=== PATIENT | female | born 1975 | race Caucasian/White ===

== ENCOUNTER 2018-09-26 21:04 | Emergency (ER) | payer MEDICAID, OTHER ==
[2018-09-26] MEDS ORDERED: Zosyn 3.375GM/100 Ml D5W 3.375 GM/100 ML IVPB IV STA (22:06)
[2018-09-26] MEDS ORDERED: Zofran 4 MG/2 ML VIAL IV ONE (22:11)
[2018-09-26] MEDS ORDERED: MORPHINE SULFATE 4 MG INJ IV ONE (22:12)
[2018-09-26] MEDS ORDERED: Sodium Chloride 0.9% 1000 ML 1,000 ML IV SCH (22:15)
--- NOTE | 2018-09-26 22:18 | ERPHSYRPT ---
- History of Present Illness Time Seen by Provider: 09/26/18 21:45 Source: patient Exam Limitations: clinical condition Patient Subjective Stated Complaint: Pt states that she came to the ER due to Pt states that she was walking out the back door on Saturday 2 days ago coming down a on a small step and fell pt states that one right leg was out in front and the back left leg was bent like doing the splits. Pt states that she didn't pass out hit or head. Pt states that she sat there for 2-3 min and called out to her son and pts son helped her get up pt states that her left upper thigh felt like she tore something at first pt states that she hasn't had any more issues with the left upper thigh. Pt staets that the scrabs on your left foot is what has been bothering you. Swelling with scraps and abrasions noted on pts left upper foot and knees and upper casanova. Pt is able to move Both extremities with in normal limits. Pt denies having any fever or illness at this time.Pts states that she cleaned the wound with Ivory and water and applied antibiotic cream and placed guaze pads coband and bandage tape to help and applied ice. Saturday when pt worked she states that having her shoes on at work has irritated the wound. Pt states that she changed the dressing multiply times at work Triage Nursing Assessment: Pt states that she came to the ER due to Pt states that she was walking out the back door on Saturday 2 days ago coming down a on a small step and fell pt states that one right leg was out in front and the back left leg was bent like doing the splits. Pt states that she didn't pass out hit or head. Pt states that she sat there for 2-3 min and called out to her son and pts son helped her get up pt states that her left upper thigh felt like she tore something at first pt states that she hasn't had any more issues with the left upper thigh. Pt staets that the scrabs on your left foot is what has been bothering you. Swelling with scraps and abrasions noted on pts left upper foot and knees and upper casanova. Pt is able to move Both extremities with in normal limits. Pt denies having any fever or illness at this time.Pts states that she cleaned the wound with Ivory and water and applied antibiotic cream and placed guaze pads coband and bandage tape to help and applied ice. Saturday when pt worked she states that having her shoes on at work has irritated the wound. Pt states that she changed the dressing multiply times at work Physician History: PATIENT STATES SHE SLIPPED ONTO STEP AT HOME 2 DAYS AGO SUSTAINED INJURY AND ABRASIONS TO LEFT FOOT AND KNEE, NOW HAS REDNESS WITH SWELLING OVER LEFT FOOT ASSOCIATED WITH INCREASING SWELLING AND PAIN UPON WEIGHT BEARING. Occurred: days ago Reason for Fall: tripped Injuries/Pain Location: lower extremity Loss of Consciousness: no loss of consciousness Quality: aching Severity of Pain-Max: moderate Severity of Pain-Current: moderate Modifying Factors: Improves With: movement Associated Symptoms (Fall): extremity injury (REDNESS WITH SWELLING AROUND FOOT ABRASION) Allergies/Adverse Reactions: No Known Drug Allergies Allergy (Verified 09/26/18 21:59) Hx Tetanus, Diphtheria Vaccination/Date Given: No Hx Influenza Vaccination/Date Given: Yes (12/2017) Hx Pneumococcal Vaccination/Date Given: No Immunizations Up to Date: Yes - Review of Systems Constitutional: No Fever, No Chills Eyes: No Symptoms Ears, Nose, & Throat: No Symptoms Respiratory: No Cough, No Dyspnea Cardiac: No Chest Pain, No Edema, No Syncope Abdominal/Gastrointestinal: No Abdominal Pain, No Nausea, No Vomiting, No Diarrhea Genitourinary Symptoms: No Dysuria Musculoskeletal: Injury, Joint Redness, Joint Pain, Joint Swelling, No Back Pain , No Neck Pain Skin: Cellulitis, No Rash Neurological: No Dizziness, No Focal Weakness, No Sensory Changes Psychological: No Symptoms Endocrine: No Symptoms All Other Systems: Reviewed and Negative - Past Medical History Pertinent Past Medical History: No Neurological History: No Pertinent History ENT History: No Pertinent History Cardiac History: No Pertinent History Respiratory History: No Pertinent History Endocrine Medical History: No Pertinent History Musculoskeletal History: No Pertinent History GI Medical History: Irritable Bowel History: No Pertinent History Psycho-Social History: Anxiety, Depression Female Reproductive Disorders: No Pertinent History - Past Surgical History Past Surgical History: Yes Female Surgical History: Section, Tubal Ligation Other Surgical History: ablasion 10 yrs ago - Social History Smoking Status: Never smoker Exposure to second hand smoke: No Drug Use: none Patient Lives Alone: Yes Significant Family History: no pertinent family hx - Female History Hx Last Menstrual Period: July Hx Now: No - Nursing Vital Signs Nursing Vital Signs: Initial Vital Signs Temperature 98.2 F 09/26/18 21:25 Pulse Rate 81 09/26/18 21:25 Respiratory Rate 18 09/26/18 21:25 Blood Pressure 148/88 09/26/18 21:25 O2 Sat by Pulse Oximetry 97 09/26/18 21:25 Pain Scale Pain Intensity 2 - Physical Exam General Appearance: no apparent distress Extremity Exam: pain with movement, tenderness, other (THE PROXIMAL LEFT FOOT WITH SWELLING AND A 2CM X 4CM SUPERFICIAL ABRASION WITH SURROUNDING WARMTH AND ERYTHEMA, ERYTHEMA STREAK EXTENDING FROM ANTERIOR ASPECT OF LEFT ANKLE TO PROXIMAL LEFT CASANOVA 19CM, NO DRAINAGE NOTED. LEFT PEDIS PULSE 2 +) Skin Exam: normal color SpO2 Interpretation: normal SpO2: 95 O2 Delivery: Room Air Ordered Tests: Active Orders 24 hr Category Date Time Status IV Insertion STAT Care 09/26/18 22:05 Active ANKLE (3 VIEWS) Stat Exams 09/26/18 22:08 Taken FOOT (MINIMUM 3 VIEWS) Stat Exams 09/26/18 22:07 Taken BLOOD CULTURE Stat Lab 09/26/18 22:33 Received CBC W DIFF Stat Lab 09/26/18 22:05 Completed Medication Summary Generic Name Dose Route Start Last Admin Trade Name Freq PRN Reason Stop Dose Admin Sodium Chloride 1,000 mls @ 100 mls/hr 09/26/18 22:15 09/26/18 22:31 Sodium Chloride 0.9% 1000 Ml IV 10/26/18 22:14 100 mls/hr .Q10H JUAQUIN Administration Discontinued Medications Generic Name Dose Route Start Last Admin Trade Name Freq PRN Reason Stop Dose Admin Piperacillin Sod/Tazobactam Sod 3.375 gm in 100 mls @ 200 mls/hr 09/26/18 22: 06 09/26/18 22:51 Zosyn 3.375gm/100 Ml D5w IV 09/26/18 22:35 200 mls/hr STAT STA 200 mls/hr Administration Piperacillin Sod/Tazobactam Sod Confirm 09/26/18 22:26 Zosyn 3.375gm/100 Ml D5w Administered 09/26/18 22:27 Dose 3.375 gm in 100 mls @ ud IV .STK-MED ONE Morphine Sulfate 4 mg 09/26/18 22:12 09/26/18 22:40 Morphine Sulfate 4 Mg Inj IV 09/26/18 22:13 4 mg STAT ONE Administration Morphine Sulfate Confirm 09/26/18 22:26 Morphine Sulfate 4 Mg Inj Administered 09/26/18 22:27 Dose 4 mg .ROUTE .STK-MED ONE Ondansetron HCl 4 mg 09/26/18 22:11 09/26/18 22:36 Zofran 4 Mg/2 Ml Vial IV 09/26/18 22:12 4 mg STAT ONE Administration Ondansetron HCl Confirm 09/26/18 22:25 Zofran 4 Mg/2 Ml Vial Administered 09/26/18 22:26 Dose 4 mg .ROUTE .STK-MED ONE Lab/Rad Data: Laboratory Result Diagrams 09/26/18 22:05 Laboratory Results 09/26/18 Range/Units 22:05 WBC 11.4 H (4.0-10.5) K/mm3 RBC 4.87 (4.1-5.4) M/mm3 Hgb 14.6 (12.0-16.0) gm/dl Hct 43.9 (35-47) % MCV 90.1 (78-100) fl MCH 30.0 (26-32) pg MCHC 33.3 (32-36) g/dl RDW 13.3 (11.5-14.0) % Plt Count 243 (150-450) K/mm3 MPV 11.5 H (6-9.5) fl Gran % 63.0 (36.0-66.0) % Eos # (Auto) 0.23 (0-0.5) Absolute Lymphs (auto) 3.13 (1.0-4.6) Absolute Monos (auto) 0.85 (0.0-1.3) Lymphocytes % 27.4 (24.0-44.0) % Monocytes % 7.4 (0.0-12.0) % Eosinophils % 2.0 (0.00-5.0) % Basophils % 0.2 (0.0-0.4) % Absolute Granulocytes 7.20 H (1.4-6.9) Basophils # 0.02 (0-0.4) - Progress Progress Note: 09/26/18 22:18 AFTER BLOOD CULTURES IV NORMAL SALINE 100ML/HR ZOSYN 3.375GM IVPB, MORPHINE 4MG , ZOFRAN 4MG IV - Departure Departure Disposition: Home Clinical Impression: CELLULITIS LEFT FOOT AND ANKLE Condition: Stable Critical Care Time: No Referrals: CHANDLER LOTT [Primary Care Provider] - Additional Instructions: AMBULATE USING CRUTCHES NONWEIGHT BEARING LEFT FOOT FOR 5 DAYS. ELEVATE LEFT FOOT ABOVE WAIST WHILE SITTING OR SUPINE POSITION. ANTIBIOTIC AUGMENTIN 875MG TWICE DAILY FOR 10 DAYS. NORCO 5/325 EVERY 6 HOURS FOR PAIN NEEDED. RETURN TO EMERGENCY FOR ONSET OF FEVER, CHILLS, INCREASING SWELLING AND PERSISTENT RED STREAK OVER CASANOVA. Prescriptions: Hydrocodone/APAP 5-325 Tab^^^ [[place] 5-325 Tablet^^^] 1 tab PO Q6HPRN PRN #10 tablet MDD 4 PRN Reason: Pain Amox Tr/Potass Clav. 875 mg [Augmentin 875-125 Tablet] 875 mg PO BID #20 tablet
[2018-09-26] MEDS ORDERED: Zofran 4 MG/2 ML VIAL ONE (22:25)
[2018-09-26] MEDS ORDERED: Sodium Chloride 0.9% 1000 ML 1,000 ML ONE (22:26)
[2018-09-26] MEDS ORDERED: MORPHINE SULFATE 4 MG INJ ONE (22:26)
[2018-09-26] MEDS ORDERED: Zosyn 3.375GM/100 Ml D5W 3.375 GM/100 ML IVPB IV ONE (22:26)
[2018-09-26 22:33] LABS: BASOPHIL % 0.2 % (0.0-0.4); Basophil (Absolute #) 0.02 (0-0.4); Eosinophil (Absolute #) 0.23 (0-0.5); Hematocrit 43.9 % (35-47); Hemoglobin 14.6 gm/dl (12.0-16.0); Lymphocyte (Absolute #) 3.13 (1.0-4.6); Lymphocytes % 27.4 % (24.0-44.0); Mean Cell Volume 90.1 fl (78-100); Mean Corpuscular Hgb Concent. 33.3 g/dl (32-36); Mean Platelet Volume 11.5 fl (6-9.5); Monocyte (Absolute #) 0.85 (0.0-1.3); Monocytes % 7.4 % (0.0-12.0); Platelet Count 243 K/mm3 (150-450); Red Blood Count 4.87 M/mm3 (4.1-5.4); Red Cell Distribution Width 13.3 % (11.5-14.0); White Blood Count 11.4 K/mm3 (4.0-10.5)
[2018-09-27] MEDS ORDERED: Augmentin 875-125 Tablet PO ONE (00:20)
[2018-09-27] MEDS ORDERED: Augmentin 875-125 Tablet ONE (00:22)
[2018-09-27 00:54] VITALS: BP 107/67; PULSE 67; O2SAT 97
--- NOTE | 2018-09-27 09:49 | XRAY ---
Indication: Pain following fall. Comparison: None 3 views of the left ankle demonstrates medial soft tissue swelling and small heel spurs. No other bony, articular, or soft tissue abnormalities.
--- NOTE | 2018-09-27 09:49 | XRAY ---
Indication: Pain following fall. Comparison: None 3 nonweightbearing views of the left foot demonstrates small heel spurs. No other bony, articular, or soft tissue abnormalities.
== END 2018-09-27 00:50 | disposition home or self-care (01) ==
LOC: ED 21:04
DX: L03.116 Cellulitis of left lower limb (principal); W01.0XXA Fall on same level from slipping, tripping and stumbling without subsequent striking against object, initial encounter; S90.812A Abrasion, left foot, initial encounter; S80.212A Abrasion, left knee, initial encounter; S80.812A Abrasion, left lower leg, initial encounter
CPT/HCPCS: 36000; 36415; 73610; 73630; 85025; 87040; 96360; 96361; 96365; 96374; 96375; 99284; J2270; J2405; J2543; A9270-GY

== ENCOUNTER 2020-05-01 15:40 | Emergency (ER) | payer SELFPAY ==
[2020-05-01 15:53] VITALS: O2SAT 98
[2020-05-01] MEDS ORDERED: Sodium Chloride 0.9% 1000 ML 1,000 ML IV STA (15:56)
[2020-05-01] MEDS ORDERED: TORAdol 30 mg Injection IV ONE (15:56)
--- NOTE | 2020-05-01 15:59 | ERPHSYRPT ---
- History of Present Illness Time Seen by Provider: 05/01/20 15:46 Historian: patient Exam Limitations: no limitations Patient Subjective Stated Complaint: Pt states that she has been having difficulty urinating and began having pain with urination, today she began having pain in her left flank Triage Nursing Assessment: Pt c/o of painful urination and left flank pain, hypertensive, rates left flank pain and left abdominal quadrant pain with p alpatation as 7/10, no edema, pulses normal, skin n/w/d, hx of UTI's, denies hx of kidney stones Physician History: 45 years old female with history of anxiety depression presented in the ER with chief complaint of 1 week history of burning urination, increased frequency and moderate to severe sharp shooting pain in the left flank since morning with radiation to lower back without any significant aggravating or relieving factors. Patient denies any associated nausea or vomiting. Denies hematuria. No history of kidney stones but does have history of UTIs in the past. No fever or chills reported. Allergies/Adverse Reactions: No Known Drug Allergies Allergy (Verified 05/01/20 15:53) Home Medications: Buspirone HCl 5 mg [Buspar 5 mg] 5 mg PO BID 05/01/20 [History] Escitalopram Oxalate 10 mg [Lexapro 10 MG] 10 mg PO DAILY 05/01/20 [History] Trazodone HCl 50 mg [Desyrel 50 mg] 50 mg PO DAILY 05/01/20 [History] Hx Tetanus, Diphtheria Vaccination/Date Given: No Hx Influenza Vaccination/Date Given: Yes (12/2017) Hx Pneumococcal Vaccination/Date Given: No Travel Risk - International Travel Have you traveled outside of the country in past 3 weeks: No - Coronavirus Screening Are you exhibiting any of the following symptoms?: No Close contact with a COVID-19 positive Pt in past 14-21 Days: No - Review of Systems Constitutional: No Symptoms Eyes: No Symptoms Ears, Nose, & Throat: No Symptoms Respiratory: No Symptoms Cardiac: No Symptoms Abdominal/Gastrointestinal: Abdominal Pain Genitourinary Symptoms: Dysuria, Frequency Musculoskeletal: No Symptoms Skin: No Symptoms Neurological: No Symptoms Psychological: Anxiety, Depression Endocrine: No Symptoms Hematologic/Lymphatic: No Symptoms Immunological/Allergic: No Symptoms - Past Medical History Pertinent Past Medical History: Yes Neurological History: No Pertinent History ENT History: No Pertinent History Cardiac History: No Pertinent History Respiratory History: No Pertinent History Endocrine Medical History: No Pertinent History Musculoskeletal History: No Pertinent History GI Medical History: Irritable Bowel History: No Pertinent History Psycho-Social History: Anxiety, Depression Female Reproductive Disorders: No Pertinent History - Past Surgical History Past Surgical History: Yes Female Surgical History: Section, Tubal Ligation Other Surgical History: ablasion 10 yrs ago - Social History Smoking Status: Never smoker Exposure to second hand smoke: No Drug Use: none Patient Lives Alone: No Significant Family History: no pertinent family hx - Female History Hx Last Menstrual Period: approx 1 year ago Hx Now: No - Nursing Vital Signs Nursing Vital Signs: Initial Vital Signs Temperature 97.9 F 05/01/20 15:45 Pulse Rate 77 05/01/20 15:45 Blood Pressure 160/92 05/01/20 15:45 O2 Sat by Pulse Oximetry 98 05/01/20 15:45 Pain Scale Pain Intensity 2 - Physical Exam General Appearance: no apparent distress, alert, anxiety Eye Exam: PERRL/EOMI, eyes nml inspection Ears, Nose, Throat Exam: normal ENT inspection Neck Exam: normal inspection Respiratory Exam: normal breath sounds Cardiovascular Exam: regular rate/rhythm, normal heart sounds Gastrointestinal/Abdomen Exam: soft, normal bowel sounds, tenderness (Left flank with positive CVA tenderness.), No distention, No guarding Back Exam: normal inspection, normal range of motion Extremity Exam: normal inspection Neurologic Exam: alert, oriented x 3, cooperative Skin Exam: normal color, warm SpO2 Interpretation: normal SpO2: 98 O2 Delivery: Room Air Ordered Tests: Active Orders 24 hr Category Date Time Status IV Insertion STAT Care 05/01/20 15:56 Active ABDOMEN AND PELVIS W CONTRAST [CT] Stat Exams 05/01/20 16:25 Taken CBC W DIFF Stat Lab 05/01/20 15:56 Completed CMP Stat Lab 05/01/20 15:56 Completed CULTURE,URINE Stat Lab 05/01/20 15:59 Received LIPASE Stat Lab 05/01/20 15:56 Completed UA W/RFX UR CULTURE Stat Lab 05/01/20 15:59 Completed Medication Summary Generic Name Dose Route Start Last Admin Trade Name Freq PRN Reason Stop Dose Admin Ceftriaxone Sodium/Dextrose 1 g in 50 mls @ 100 mls/hr 05/01/20 16:56 05/01/20 16:59 Rocephin 1 Gm-D5w 50 Ml Bag IV 05/01/20 17:25 100 ml/hr STAT STA 100 mls/hr Administration Discontinued Medications Generic Name Dose Route Start Last Admin Trade Name Lawanda PRN Reason Stop Dose Admin Sodium Chloride 1,000 mls @ 999 mls/hr 05/01/20 15:56 05/01/20 16:02 Sodium Chloride 0.9% 1000 Ml IV 05/01/20 16:56 999 mls/hr .Q1H1M STA Administration Sodium Chloride Confirm 05/01/20 16:00 Sodium Chloride 0.9% 1000 Ml Administered 05/01/20 16:01 Dose 1,000 mls @ ud .ROUTE .STK-MED ONE Ceftriaxone Sodium/Dextrose Confirm 05/01/20 16:57 Rocephin 1 Gm-D5w 50 Ml Bag Administered 05/01/20 16:58 Dose 1 g in 50 mls @ ud IV .STK-MED ONE Ketorolac Tromethamine 30 mg 05/01/20 15:56 05/01/20 16:02 Toradol 30 Mg Injection IV 05/01/20 15:57 30 mg STAT ONE Administration Ketorolac Tromethamine Confirm 05/01/20 16:00 Toradol 30 Mg Injection Administered 05/01/20 16:01 Dose 30 mg .ROUTE .STK-MED ONE Lab/Rad Data: Laboratory Result Diagrams 05/01/20 15:56 05/01/20 15:56 Laboratory Results 05/01/20 05/01/20 05/01/20 Range/Units 15:59 15:56 15:56 WBC 10.7 H (4.0-10.5) K/mm3 RBC 4.56 (4.1-5.4) M/mm3 Hgb 13.0 (12.0-16.0) gm/dl Hct 41.9 (35-47) % MCV 91.9 (78-100) fl MCH 28.5 (26-32) pg MCHC 31.0 L (32-36) g/dl RDW 13.1 (11.5-14.0) % Plt Count 183 (150-450) K/mm3 MPV 11.1 H (7.5-11.0) fl Gran % 67.8 H (36.0-66.0) % Eos # (Auto) 0.40 (0-0.5) Absolute Lymphs (auto) 2.05 (1.0-4.6) Absolute Monos (auto) 0.97 (0.0-1.3) Lymphocytes % 19.2 L (24.0-44.0) % Monocytes % 9.1 (0.0-12.0) % Eosinophils % 3.7 (0.00-5.0) % Basophils % 0.2 (0.0-0.4) % Absolute Granulocytes 7.24 H (1.4-6.9) Basophils # 0.02 (0-0.4) Sodium 136 L (137-145) mmol/L Potassium 4.6 (3.5-5.1) mmol/L Chloride 101 (98-107) mmol/L Carbon Dioxide 29 (22-30) mmol/L Anion Gap 10.9 (5-15) MEQ/L BUN 13 (7-17) mg/dL Creatinine 0.95 (0.52-1.04) mg/dL Estimated GFR > 60.0 ML/MIN Glucose 105 (74-106) mg/dL Calcium 9.2 (8.4-10.2) mg/dL Total Bilirubin 0.20 (0.2-1.3) mg/dL AST 22 (14-36) U/L ALT 16 (0-35) U/L Alkaline Phosphatase 71 (38-126) U/L Serum Total Protein 7.1 (6.3-8.2) g/dL Albumin 4.2 (3.5-5.0) g/dL Lipase 38 (23-300) U/L Urine Color YELLOW (YELLOW) Urine Appearance CLOUDY (CLEAR) Urine pH 6.0 (5-6) Ur Specific [place] 1.011 (1.005-1.025) Urine Protein 30 (Negative) Urine Ketones NEGATIVE (NEGATIVE) Urine Blood LARGE (0-5) Phong/ul Urine Nitrite NEGATIVE (NEGATIVE) Urine Bilirubin NEGATIVE (NEGATIVE) Urine Urobilinogen NEGATIVE (0-1) mg/dL Ur Leukocyte Esterase LARGE (NEGATIVE) Urine WBC (Auto) 51-100 (0-5) /HPF Urine RBC (Auto) >101 (0-2) /HPF U Epithel Cells (Auto) RARE (FEW) /HPF Urine Bacteria (Auto) FEW (NEGATIVE) /HPF U Non-Squamous Epi Cells RARE (FEW) /HPF Amorphous Crystals MODERATE (NEGATIVE) /HPF Urine Culture Reflexed YES (NO) Urine Glucose NEGATIVE (NEGATIVE) mg/dL - Progress Progress: improved, re-examined Progress Note: 05/01/20 17:05 25 years old is evaluated for left flank pain with UTI symptoms. She is given fluid bolus and Toradol, on reevaluation feeling better. Work-up showed finding consistent with UTI but no pyelonephritis. CT showed some element of jejunitis but patient does not have any pain in the right side are in the midline. I have given her a dose of Rocephin in here and will continue with the Cipro to go home and outpatient follow-up. Discussed signs symptoms of worsening needing return to ER which she seems understanding. Stable for discharge. Counseled pt/family regarding: lab results, diagnosis, need for follow-up, rad results - Departure Departure Disposition: Home Clinical Impression: UTI (urinary tract infection) Qualifiers: Urinary tract infection type: site unspecified Hematuria presence: with hematuria Qualified Code(s): N39.0 - Urinary tract infection, site not specified; R31.9 - Hematuria, unspecified Condition: Stable Critical Care Time: No Referrals: CHANDLER LOTT [Primary Care Provider] - Follow Up with PCP/3 days Instructions: Flank Pain, Urinary Tract Infection, Adult (DC) Additional Instructions: Take Tylenol/ibuprofen as needed. Continue with antibiotics. Follow culture results. Return to ER for intractable pain/vomiting/fever chills etc. Prescriptions: Ciprofloxacin [Cipro 500 MG] 500 mg PO BID #14 tablet
[2020-05-01] MEDS ORDERED: Sodium Chloride 0.9% 1000 ML 1,000 ML ONE (16:00)
[2020-05-01] MEDS ORDERED: TORAdol 30 mg Injection ONE (16:00)
[2020-05-01 16:11] LABS: Absolute Neutrophil Ct (ANC) 7.24 (1.4-6.9); BASOPHIL % 0.2 % (0.0-0.4); Basophil (Absolute #) 0.02 (0-0.4); Eosinophil % 3.7 % (0.00-5.0); Hematocrit 41.9 % (35-47); Lymphocyte (Absolute #) 2.05 (1.0-4.6); Lymphocytes % 19.2 % (24.0-44.0); Mean Cell Volume 91.9 fl (78-100); Mean Corpuscular Hemoglobin 28.5 pg (26-32); Mean Platelet Volume 11.1 fl (7.5-11.0); Monocyte (Absolute #) 0.97 (0.0-1.3); Monocytes % 9.1 % (0.0-12.0); Neutrophil % 67.8 % (36.0-66.0); Platelet Count 183 K/mm3 (150-450); Red Blood Count 4.56 M/mm3 (4.1-5.4); Red Cell Distribution Width 13.1 % (11.5-14.0); White Blood Count 10.7 K/mm3 (4.0-10.5)
[2020-05-01 16:17] LABS: Amourphous Crystal MODERATE /HPF (NEGATIVE); Appearance CLOUDY (CLEAR); Bacteria FEW /HPF (NEGATIVE); Bilirubin NEGATIVE (NEGATIVE); Blood LARGE Ery/ul (0-5); Epithelial Cells RARE /HPF (FEW); Glucose NEGATIVE (NEGATIVE); Ketones NEGATIVE (NEGATIVE); Leukocyte Esterase LARGE (NEGATIVE); Nitrite NEGATIVE (NEGATIVE); Non-Squamous Epithelial Cells RARE /HPF (FEW); Protein,Urine Dip 30 (Negative); RBC >101 /HPF (0-2); Specific Gravity 1.011 (1.005-1.025); Urobilinogen NEGATIVE mg/dL (0-1); WBC 51-100 /HPF (0-5)
[2020-05-01 16:22] LABS: ALBUMIN 4.2 g/dL (3.5-5.0); ALKALINE PHOSPHATASE 71 U/L (38-126); ANION GAP 10.9 MEQ/L (5-15); BLOOD UREA NITROGEN 13 mg/dL (7-17); CHLORIDE 101 mmol/L (98-107); Calcium 9.2 mg/dL (8.4-10.2); Carbon Dioxide 29 mmol/L (22-30); Creatinine 1 0.95 mg/dL (0.52-1.04); EST GLOMERULAR FILTRATION RATE > 60.0 ML/MIN; Glucose 105 mg/dL (74-106); LIPASE 38 U/L (23-300); Potassium 4.6 mmol/L (3.5-5.1); SGOT/AST 22 U/L (14-36); SGPT/ALT 16 U/L (0-35); SODIUM 136 mmol/L (137-145); Total Protein 7.1 g/dL (6.3-8.2)
[2020-05-01] MEDS ORDERED: ROCEPHIN 1 Gm-D5w 50 ml Bag** 1 G/50 ML IVPB IV STA (16:56)
[2020-05-01] MEDS ORDERED: ROCEPHIN 1 Gm-D5w 50 ml Bag** 1 G/50 ML IVPB IV ONE (16:57)
[2020-05-01 17:08] VITALS: BP 130/88; PULSE 72
--- NOTE | 2020-05-01 19:21 | XRAY ---
Indication left flank pain. Painful urination. Multiple contiguous axial images obtained through the abdomen and pelvis using 80 cc Isovue 370 contrast. Comparison: None. Lung bases demonstrates bibasilar dependent atelectasis. No infiltrate or effusion. Heart is not enlarged. Stomach is mildly distended with food/fluid. Noncontrasted stomach and bowel loops are nonobstructed. Jejunal bowel loops and this has mild circumferential wall thickening, possibly enteritis. Normal appendix. There is mild diffuse scattered colonic fecal debris throughout. No free fluid/air. There are scattered subcentimeter mid abdomen mesenteric nodes favoring adenitis. 1 cm left lobe hepatic cyst. Lower uterine segment of the uterus demonstrates small fluid in the endometrial cavity up to 9 mm. Remaining liver, gallbladder, pancreas, spleen, adrenal glands, kidneys, ureters, bladder, and aorta appear unremarkable. No pathologic retroperitoneal lymphadenopathy.. Osseous structures intact with minimal degenerative changes throughout the spine. Impression: 1. Jejunal bowel wall thickening possibly enteritis. 2. Incidental mild diffuse fecal stasis, small mid mesenteric nodes favoring adenitis, small left lobe hepatic cyst, and small nonspecific fluid in the uterine cavity. 3. Remaining CT abdomen/pelvis with contrast exam is negative. Comment: Preliminary interpretation was made by C. No critical discrepancy.
== END 2020-05-01 17:14 | disposition home or self-care (01) ==
LOC: ED 15:40
DX: N39.0 Urinary tract infection, site not specified (principal); R31.9 Hematuria, unspecified; R10.9 Unspecified abdominal pain; R39.198 Other difficulties with micturition
CPT/HCPCS: 36000; 36415; 74177; 80053; 81001; 83690; 85025; 87077; 87086; 87186; 96360; 96365; 96374; 99284; J0696; J1885

== ENCOUNTER 2020-11-06 10:22 | Emergency (ER) | payer MEDICAID ==
--- NOTE | 2020-11-06 11:15 | ERPHSYRPT ---
- History of Present Illness Time Seen by Provider: 11/06/20 11:12 Source: patient Exam Limitations: no limitations Patient Subjective Stated Complaint: Pt states that she tripped over something in her house and hit her face on the door at approx 0330 this AM, pt states that she continues to have a bloody nose and she also has a laceration to the bridge of her nose, pt also has a abrasion to her forehead with bruising, pt states that she got real dizzy and felt like she was going to pass out Triage Nursing Assessment: Pt brought to the ER by her , brian jenkins, rates nose pain as 8/10, continues to feel dizzy and that she may pass out, states that the bleeding have been coming from her nostrils and not the laceration, denies LOC, denies any other injuries Physician History: Pt states that she tripped over something in her house and hit her face on the door at approx 0330 this AM, pt states that she continues to have a bloody nose and she also has a laceration to the bridge of her nose, pt also has a abrasion to her forehead with bruising, pt states that she got real dizzy and felt like she was going to pass out Occurred: this morning Reason for Fall: tripped Injuries/Pain Location: face Loss of Consciousness: no loss of consciousness Severity of Pain-Max: mild Severity of Pain-Current: mild Allergies/Adverse Reactions: No Known Drug Allergies Allergy (Verified 11/06/20 10:55) Home Medications: Buspirone HCl 5 mg [Buspar 5 mg] 5 mg PO BID 05/01/20 [History] Escitalopram Oxalate 10 mg [Lexapro 10 MG] 10 mg PO DAILY 05/01/20 [History] Trazodone HCl 50 mg [Desyrel 50 mg] 50 mg PO DAILY 05/01/20 [History] Hx Tetanus, Diphtheria Vaccination/Date Given: No Hx Influenza Vaccination/Date Given: Yes (12/2017) Hx Pneumococcal Vaccination/Date Given: No Travel Risk - International Travel Have you traveled outside of the country in past 3 weeks: No - Coronavirus Screening Are you exhibiting any of the following symptoms?: No Close contact with a COVID-19 positive Pt in past 14-21 Days: No - Vaccine Status Have you recieved a Covid-19 vaccination: No - Review of Systems Constitutional: No Fever, No Chills Eyes: No Symptoms Ears, Nose, & Throat: No Symptoms, Other (1 cm laceartion on bridge of nose. scalp) Respiratory: No Cough, No Dyspnea Cardiac: No Chest Pain, No Edema, No Syncope Abdominal/Gastrointestinal: No Abdominal Pain, No Nausea, No Vomiting, No Diarrhea Genitourinary Symptoms: No Dysuria Musculoskeletal: No Back Pain, No Neck Pain Skin: No Rash Neurological: No Dizziness, No Focal Weakness, No Sensory Changes Psychological: No Symptoms Endocrine: No Symptoms All Other Systems: Reviewed and Negative - Past Medical History Pertinent Past Medical History: Yes Neurological History: No Pertinent History ENT History: No Pertinent History Cardiac History: No Pertinent History Respiratory History: No Pertinent History Endocrine Medical History: No Pertinent History Musculoskeletal History: No Pertinent History GI Medical History: Irritable Bowel History: No Pertinent History Psycho-Social History: Anxiety, Depression Female Reproductive Disorders: No Pertinent History - Past Surgical History Past Surgical History: Yes Female Surgical History: Section, Tubal Ligation Other Surgical History: ablasion 10 yrs ago - Social History Smoking Status: Never smoker Exposure to second hand smoke: No Drug Use: none Patient Lives Alone: No Significant Family History: no pertinent family hx - Female History Hx Now: No - Nursing Vital Signs Nursing Vital Signs: Initial Vital Signs Temperature 97.4 F 11/06/20 10:46 Pulse Rate 68 11/06/20 10:46 Blood Pressure 136/80 11/06/20 10:46 O2 Sat by Pulse Oximetry 95 11/06/20 10:46 Pain Scale Pain Intensity 8 - Sutherland Coma Score Best Eye Response (Sutherland): (4) open spontaneously Best Verbal Response (Sutherland): (5) oriented Best Motor Response ([place]utherland): (6) obeys commands [place] Total: 15 - Physical Exam General Appearance: no apparent distress, alert Head Injury: contusions, lacerations (1 cm on brige of nose, 1 cm on mid forehead) Eye Exam: PERRL/EOMI ENT Exam: airway nml Neck Exam: normal inspection, No tenderness Respiratory/Chest Exam: normal breath sounds, No chest tenderness, No respiratory distress Cardiovascular Exam: normal heart sounds, regular rate/rhythm Gastrointestinal Exam: soft, No tenderness, No distention, No guarding, No ecchymosis Back Exam: normal inspection, No vertebral tenderness Extremity Exam: normal inspection, normal range of motion, pelvis stable, No deformities Neurologic Exam: alert, oriented x 3, cooperative, sensation nml, No motor deficits Skin Exam: normal color, warm, dry SpO2: 95 - Course Nursing assessment & vital signs reviewed: Yes - CT Exams Maxillofacial Bones CT Interpretation: Tele-radiologist Report (nasal bone fracture) Ordered Tests: Active Orders 24 hr Category Date Time Status FACIAL BONES WO CONTRAST [CT] Stat Exams 11/06/20 11:08 Taken Medication Summary Discontinued Medications Generic Name Dose Route Start Last Admin Trade Name Lawanda PRN Reason Stop Dose Admin Ibuprofen 600 mg 11/06/20 12:08 11/06/20 12:11 Motrin 600 Mg PO 11/06/20 12:09 600 mg STAT ONE Administration Ibuprofen Confirm 11/06/20 12:10 Motrin 600 Mg Administered 11/06/20 12:11 Dose 600 mg .ROUTE .STK-MED ONE - Progress Progress: improved, pain not gone completely Counseled pt/family regarding: diagnosis, need for follow-up, rad results - Departure Departure Disposition: Home Clinical Impression: Fall (on) (from) other stairs and steps, initial encounter Nasal bones, closed fracture Qualifiers: Encounter type: initial encounter Qualified Code(s): S02.2XXA - Fracture of nasal bones, initial encounter for closed fracture Condition: Stable Critical Care Time: No Referrals: CHANDLER LOTT [Primary Care Provider] - Instructions: Contusion (DC), Preventing Falls, Nose Fracture (DC) Additional Instructions: Discharge/Care Plan ROB CAR was seen on 11/06/20 in the Emergency Room. The patient was counseled regarding Diagnosis,Lab results, Imaging studies, need for follow up and when to return to the Emergency Room. Prescriptions given: Discharge Note I have spoken with the patient and/or caregivers. I have explained the patient's condition, diagnosis and treatment plan based on the information available to me at this time. I have answered the patient's and/or caregiver's questions and addressed any concerns. The patient and/or caregivers have as good understanding of the patient's diagnosis, condition and treatment plan as can be expected at this point. The vital signs have been stable. The patient's condition is stable and appropriate for discharge from the emergency department. The patient will pursue further outpatient evaluation with the primary care physician or other designated or consulting physician as outlined in the discharge instructions. The patient and/or caregivers are agreeable to this plan of care and follow-up instructions have been explained in detail. The patient and/or caregivers have received these instruction. The patient/and or caregivers are aware that any significant change in condition or worsening of symptoms should prompt an immediate return to this or the closest emergency department or call 911. ROB CAR was seen on 11/06/20 n the Emergency Room. At that time you were treated for an emergent condition, during your visit Laboratory, Radiology and/or other procedures may have been ordered. It is very important that you follow-up with your Primary Care Physician CHANDLER LOTT within the next 24- 48 hours to review your Emergency Room visit and the final results of testing that was ordered. Some test results such as Urine Cultures, Blood Cultures, and other cultures if ordered will not be finalized for 24-48 hours. If you do not have a Primary Care Provider please call the medical records department at [phone] ext [phone] to obtain a copy of your results or you may sign into our patient portal to obtain these results by visiting us @ [email or web address] and completing the following steps: 1. Click on the Patient Portal link 2. Click the Patient Self Enrollment Link to complete the enrollment form and entering your 3. Once the enrollment form is completed you will receive an email with a temporary ID and password at the email address you provided. 4. Next choose a user name and password. Your user name must be at least 4 characters long and your password must be at least 4 characters long. 5. Choose a security question from the list and provide your answer to the question. If you already have signed into the Health Portal you may access your Health Care Information 01/10 by the following steps: 1. Login to our website @ [email or web address] 2. Enter your original user name and password. FAQS The [facility] Portal is an online tool that contains your Lab Results, Radiology Reports, Visit History, Discharge Instructions and Health Summary Lab and Radiology Results will not be available for 72 hours on the portal. The Portal is a secure site, passwords are encryted and URLs are re-written so they cannot be copied and pasted. You and authorized family members are the only ones who can access your Portal. Also there is a timeout feature that protects your information if you leave the Portal page open. If you have technical difficulty please use the Contact Us link on the page this will allow you to submit any questions you have regarding the Portal or you may contact the Medical Record Department at [phone] ext [phone].
[2020-11-06] MEDS ORDERED: MOTRIN 600 MG PO ONE (12:08)
[2020-11-06] MEDS ORDERED: MOTRIN 600 MG ONE (12:10)
[2020-11-06 12:48] VITALS: O2SAT 95
[2020-11-06 12:58] VITALS: BP 119/71; PULSE 64
--- NOTE | 2020-11-06 18:52 | XRAY ---
Indication: Facial injury following fall. Pain. Multiple contiguous axial images obtained through the facial bones. Sagittal and coronal reformatted images obtained. Comparison: None. Nondisplaced/non-depressed fracture involving the bridge of the nasal bone with mild overlying soft tissue swelling. No other acute fracture, suspicious bony lesions, or radiopaque foreign body. Orbits including roof, cardoso, floors are intact. There is near complete opacification of both maxillary sinuses with small fluid leveling. Minimal mucosal thickening right ethmoid sinus. Remaining paranasal sinuses and nasal passages are clear. Minimal nasal septal deviation to the right. Remaining visualized noncontrasted soft tissues including base of the brain are unremarkable. Impression: 1. Nasal bone fracture. 2. Paranasal sinus disease. Comment: Preliminary interpretation made by [facility]. No critical discrepancy.
== END 2020-11-06 12:59 | disposition home or self-care (01) ==
LOC: ED 10:22
DX: S02.2XXA Fracture of nasal bones, initial encounter for closed fracture (principal); W10.9XXA Fall (on) (from) unspecified stairs and steps, initial encounter
CPT/HCPCS: 70486; 99283; A9270-GY

== ENCOUNTER 2022-04-05 15:13 | Emergency (ER) | payer MEDICAID, OTHER ==
[2022-04-05] MEDS ORDERED: Sodium Chloride 0.9% 1000 ML 1,000 ML IV STA (16:26)
[2022-04-05 16:42] LABS: Absolute Neutrophil Ct (ANC) 6.91 x10^3/uL (1.4-6.9); BASOPHIL % 0.2 % (0.0-0.4); Basophil (Absolute #) 0.03 x10^3/uL (0-0.4); Eosinophil % 17.9 % (0.00-5.0); Eosinophil (Absolute #) 2.28 x10^3/uL (0-0.5); Hematocrit 44.5 % (35-47); IMMATURE GRAN # 0.03 x10^3u/L (0.00-0.03); IMMATURE GRAN % 0.2 % (0.00-0.4); Lymphocyte (Absolute #) 2.81 x10^3/uL (1.0-4.6); Lymphocytes % 22.1 % (24.0-44.0); Mean Corpuscular Hgb Concent. 31.5 g/dL (32-36); Mean Platelet Volume 10.7 fL (7.5-11.0); Monocyte (Absolute #) 0.65 x10^3/uL (0.0-1.3); Monocytes % 5.1 % (0.0-12.0); Neutrophil % 54.5 % (36.0-66.0); Platelet Count 200 x10^3/uL (150-450); Red Cell Distribution Width 12.7 % (11.5-14.0); White Blood Count 12.7 x10^3/uL (4.0-10.5)
[2022-04-05] MEDS ORDERED: MORPHINE SULFATE 4 MG INJ IV ONE (16:46)
[2022-04-05 16:49] LABS: Appearance Cloudy (Clear); Bacteria None Seen /HPF (None Seen); Bilirubin Negative (Negative); Blood Negative (Negative); Epithelial Cells None Seen /HPF (None Seen); Glucose, Urine Negative (Negative); Hyaline Casts NONE SEEN /LPF (0-2); Ketones Negative (Negative); Leukocyte Esterase Trace (Negative); Nitrite Negative (Negative); Protein,Urine Dip Negative (Negative); RBC 0-2 /HPF (0-5); Urobilinogen 0.2 mg/dL (0.2); WBC 0-2 /HPF (0-5)
[2022-04-05 16:55] LABS: ADD URINE CULTURE? NO (NO)
[2022-04-05] MEDS ORDERED: Sodium Chloride 0.9% 1000 ML 1,000 ML ONE (16:55)
[2022-04-05] MEDS ORDERED: MORPHINE SULFATE 4 MG INJ ONE (16:55)
--- NOTE | 2022-04-05 16:55 | ERPHSYRPT ---
- History of Present Illness Time Seen by Provider: 04/05/22 15:19 Historian: patient Exam Limitations: no limitations Patient Subjective Stated Complaint: Pt c/o of for about the past 6 months of when she eats her stomach begins to hurt and then she begins belching a lot and then her abdomen feels like she is bloated or distended and then has a lot of diarrhea, the pain is in her RUQ and radiates to the LUQ Triage Nursing Assessment: Pt brought to the ER by her , hypertensive, rates pain in her abdomen as 8/10, pt states that at this time her abdomen feels distended due to her eating a litlle bit of lunch earlier, this happens with anything she eats, pulses normal, skin n/w/d, pt states that she does vomit on some occasions Physician History: 46-year-old female with history of intermittent abdominal pain with thorough work-up done by GI presented in the ER with chief complaint of sudden onset upper abdominal pain with multiple episodes of loose stool with associated moderate to severe pain. Patient reports nausea but no vomiting. She feels weak fatigued tired and dehydrated. Timing/Duration: today, gradual onset, worse Activities at Onset: rest Quality: sharpness Abdominal Pain Onset Location: RUQ, LUQ, periumbilical Pain Radiation: no radiation Severity of Pain-Max: moderate Severity of Pain-Current: moderate Modifying Factors: Improves With: nothing Associated Symptoms: diarrhea, nausea Allergies/Adverse Reactions: No Known Drug Allergies Allergy (Verified 04/05/22 16:02) Home Medications: Buspirone HCl 5 mg [Buspar 5 mg] 7.5 mg PO BID 05/01/20 [History] Escitalopram Oxalate [Lexapro 10 MG] 20 mg PO DAILY 05/01/20 [History] Trazodone HCl 50 mg [Desyrel 50 mg] 50 mg PO DAILY 05/01/20 [History] Dicyclomine HCl 20 mg [Bentyl 20 mg] 20 mg PO UD PRN 04/05/22 [History] Liraglutide [Saxenda] 3 mg SQ DAILY 04/05/22 [History] Omeprazole Magnesium [Prilosec Otc] 40 mg PO DAILY 04/05/22 [History] Ondansetron ODT 4 MG [Zofran Odt 4 mg] 4 mg PO Q6HPRN PRN 04/05/22 [History] Hx Tetanus, Diphtheria Vaccination/Date Given: No Hx Influenza Vaccination/Date Given: Yes (12/2017) Hx Pneumococcal Vaccination/Date Given: No Travel Risk - International Travel Have you traveled outside of the country in past 3 weeks: No - Coronavirus Screening Are you exhibiting any of the following symptoms?: No Close contact with a COVID-19 positive Pt in past 14-21 Days: No - Vaccine Status Have you recieved a Covid-19 vaccination: No - Review of Systems Constitutional: Fatigue, Weakness Eyes: No Symptoms Ears, Nose, & Throat: No Symptoms Respiratory: No Symptoms Cardiac: No Symptoms Abdominal/Gastrointestinal: Abdominal Pain, Nausea, Diarrhea Genitourinary Symptoms: No Symptoms Musculoskeletal: No Symptoms Neurological: No Symptoms Psychological: No Symptoms Endocrine: No Symptoms Hematologic/Lymphatic: No Symptoms Immunological/Allergic: No Symptoms - Past Medical History Pertinent Past Medical History: Yes Neurological History: No Pertinent History ENT History: No Pertinent History Cardiac History: No Pertinent History Respiratory History: No Pertinent History Endocrine Medical History: No Pertinent History Musculoskeletal History: No Pertinent History GI Medical History: Irritable Bowel History: No Pertinent History Psycho-Social History: Anxiety, Depression Female Reproductive Disorders: No Pertinent History - Past Surgical History Past Surgical History: Yes Female Surgical History: Section, Tubal Ligation Other Surgical History: ablasion 10 yrs ago - Social History Smoking Status: Never smoker Exposure to second hand smoke: No Drug Use: none Patient Lives Alone: No Significant Family History: no pertinent family hx - Female History Hx Now: No (tubal, ablasion) - Nursing Vital Signs Nursing Vital Signs: Initial Vital Signs Temperature 98.1 F 04/05/22 15:50 Pulse Rate 77 04/05/22 15:50 Blood Pressure 157/97 04/05/22 15:50 O2 Sat by Pulse Oximetry 94 L 04/05/22 15:50 Pain Scale Pain Intensity 4 - Physical Exam General Appearance: no apparent distress, alert Eye Exam: PERRL/EOMI Ears, Nose, Throat Exam: normal ENT inspection, TMs normal, pharynx normal, moist mucous membranes Neck Exam: normal inspection, non-tender, supple, full range of motion Respiratory Exam: normal breath sounds, lungs clear Cardiovascular Exam: regular rate/rhythm, normal heart sounds Gastrointestinal/Abdomen Exam: soft, normal bowel sounds, tenderness (Upper abdomen more on the right side) Back Exam: normal inspection, normal range of motion Extremity Exam: normal inspection, normal range of motion Neurologic Exam: alert, oriented x 3, cooperative, food adviser II-XII nml as tested Skin Exam: normal color SpO2 Interpretation: normal SpO2: 94 O2 Delivery: Room Air Ordered Tests: Active Orders 24 hr Category Date Time Status IV Insertion STAT Care 04/05/22 16:46 Active NPO (ED) STAT Care 04/05/22 16:46 Active ABDOMEN AND PELVIS W/0 CONTRAS [CT] Stat Exams 04/05/22 16:46 Completed CBC W DIFF Stat Lab 04/05/22 16:35 Completed CMP Stat Lab 04/05/22 16:35 Completed LIPASE Stat Lab 04/05/22 16:35 Completed UA W/RFX UR CULTURE Stat Lab 04/05/22 16:35 Completed Medication Summary Discontinued Medications Generic Name Dose Route Start Last Admin Trade Name Lawanda PRN Reason Stop Dose Admin Sodium Chloride 1,000 mls @ 999 mls/hr 04/05/22 16:26 04/05/22 16:59 Sodium Chloride 0.9% 1000 Ml IV 04/05/22 17:26 999 mls/hr .Q1H1M STA Administration Sodium Chloride Confirm 04/05/22 16:55 Sodium Chloride 0.9% 1000 Ml Administered 04/05/22 16:56 Dose 1,000 mls @ ud .ROUTE .STK-MED ONE Morphine Sulfate 4 mg 04/05/22 16:46 04/05/22 17:00 Morphine Sulfate 4 Mg/Ml Injection IV 04/05/22 16:47 4 mg STAT ONE Administration Morphine Sulfate Confirm 04/05/22 16:55 Morphine Sulfate 4 Mg/Ml Injection Administered 04/05/22 16:56 Dose 4 mg .ROUTE .STK-MED ONE Lab/Rad Data: Laboratory Result Diagrams 04/05/22 16:35 04/05/22 16:35 Laboratory Results 04/05/22 04/05/22 04/05/22 Range/Units 16:35 16:35 16:35 WBC 12.7 H (4.0-10.5) x10^3/uL RBC 5.00 (4.1-5.4) x10^6/uL Hgb 14.0 (12.0-16.0) g/dL Hct 44.5 (35-47) % MCV 89.0 (78-100) fL MCH 28.0 (26-32) pg MCHC 31.5 L (32-36) g/dL RDW 12.7 (11.5-14.0) % Plt Count 200 (150-450) x10^3/uL MPV 10.7 (7.5-11.0) fL Gran % 54.5 (36.0-66.0) % Immature Gran % (Auto) 0.2 (0.00-0.4) % Nucleat RBC Rel Count 0.0 (0.00-0.1) % Eos # (Auto) 2.28 H (0-0.5) x10^3/uL Immature Gran # (Auto) 0.03 (0.00-0.03) x10^3u/L Absolute Lymphs (auto) 2.81 (1.0-4.6) x10^3/uL Absolute Monos (auto) 0.65 (0.0-1.3) x10^3/uL Absolute Nucleated RBC 0.00 (0.00-0.01) x10^3u/L Lymphocytes % 22.1 L (24.0-44.0) % Monocytes % 5.1 (0.0-12.0) % Eosinophils % 17.9 H (0.00-5.0) % Basophils % 0.2 (0.0-0.4) % Absolute Granulocytes 6.91 H (1.4-6.9) x10^3/uL Basophils # 0.03 (0-0.4) x10^3/uL Sodium 137 (137-145) mmol/L Potassium 3.8 (3.5-5.1) mmol/L Chloride 105 (98-107) mmol/L Carbon Dioxide 28 (22-30) mmol/L Anion Gap 7.6 (5-15) MEQ/L BUN 10 (7-17) mg/dL Creatinine 0.65 (0.52-1.04) mg/dL Estimated GFR > 60.0 ML/MIN Glucose 100 (74-106) mg/dL Calcium 9.0 (8.4-10.2) mg/dL Total Bilirubin 0.40 (0.2-1.3) mg/dL AST 25 (14-36) U/L ALT 23 (0-35) U/L Alkaline Phosphatase 113 (38-126) U/L Serum Total Protein 7.5 (6.3-8.2) g/dL Albumin 4.3 (3.5-5.0) g/dL Lipase 47 (23-300) U/L Urine Color Yellow (Yellow) Urine Appearance Cloudy A (Clear) Urine pH 7.0 (4.6-8.0) Ur Specific [place] 1.010 (1.005-1.030) Urine Protein Negative (Negative) Urine Glucose (UA) Negative (Negative) mg/dL Urine Ketones Negative (Negative) Urine Blood Negative (Negative) Urine Nitrite Negative (Negative) Urine Bilirubin Negative (Negative) Urine Urobilinogen 0.2 (0.2) mg/dL Ur Leukocyte Esterase Trace A (Negative) U Hyaline Cast (Auto) NONE SEEN (0-2) /LPF Urine Microscopic RBC 0-2 (0-5) /HPF Urine Microscopic WBC 0-2 (0-5) /HPF Ur Epithelial Cells None Seen (None Seen) /HPF Urine Bacteria None Seen (None Seen) /HPF Urine Culture Reflexed NO (NO) - Progress Progress: improved, re-examined Progress Note: 04/05/22 18:32 46-year-old female is evaluated for upper abdominal pain with nausea and diarrhea. Patient has a history of chronic abdominal pain off and on with th orough work-up done including upper and lower GI scope with no significant pathology presented with increasing pain today with multiple episodes of loose stools since morning. No vomiting. No significant aggravating or relieving factors. No fever or chills reported. She is having mild generalized tenderness. Negative Escalona sign. Negative McBurney's point tenderness. Given fluids and symptomatic treatment, on reevaluation patient is feeling much better. Work-up showed white count of 12, unremarkable chemistries and no UTI. Obtained CT abdomen pelvis without contrast which showed mildly distended gallbladder with no pericholecystic fluid or gallbladder wall thickening. No cholelithiasis, pancreatitis, colitis or obstruction. Patient is advised to follow-up outpatient with primary care for further evaluation of distended gallbladder with ultrasound. Patient has normal liver enzymes. Do not think she needs imaging or surgical consultation or any other work-up and is stable fo r discharge. She is advised to take Tylenol/ibuprofen and Bentyl as needed. Discussed signs symptoms of worsening needing return to ER which she seems understanding. Stable for discharge. Counseled pt/family regarding: lab results, diagnosis, need for follow-up, rad results - Departure Departure Disposition: Home Clinical Impression: Abdominal pain, Diarrhea Condition: Stable Critical Care Time: No Referrals: CHANDLER LOTT [Primary Care Provider] - Follow up/PCP as directed (1-2 days for reevaluation) Instructions: Severe Abdominal Pain, Adult (DC) Additional Instructions: Take Tylenol/ibuprofen along with Bentyl as needed. Follow-up with primary care for reevaluation and ultrasound gallbladder for further evaluation of distended gallbladder. Return to ER for intractable pain, vomiting, fever chills etc.
[2022-04-05 16:57] LABS: ALBUMIN 4.3 g/dL (3.5-5.0); ALKALINE PHOSPHATASE 113 U/L (38-126); ANION GAP 7.6 MEQ/L (5-15); BLOOD UREA NITROGEN 10 mg/dL (7-17); CHLORIDE 105 mmol/L (98-107); Carbon Dioxide 28 mmol/L (22-30); Creatinine 1 0.65 mg/dL (0.52-1.04); EST GLOMERULAR FILTRATION RATE > 60.0 ML/MIN; Glucose 100 mg/dL (74-106); LIPASE 47 U/L (23-300); Potassium 3.8 mmol/L (3.5-5.1); SGOT/AST 25 U/L (14-36); SGPT/ALT 23 U/L (0-35); SODIUM 137 mmol/L (137-145); Total Protein 7.5 g/dL (6.3-8.2)
--- NOTE | 2022-04-05 17:20 | XRAY ---
Indication: Right abdominal pain, bloating, nausea, and diarrhea. History IBS. Multiple contiguous images obtained through the abdomen and pelvis without contrast. Comparison: May 01, 2020 Lung bases again demonstrates minimal dependent atelectasis. Heart not enlarged. Stomach is moderately distended with food/fluid. Gallbladder mildly distended without gallstones or biliary distention. Noncontrasted stomach and bowel loops remain nonobstructed. Ileocecal junction unremarkable. Normal appendix. No abnormal bowel wall thickening or inflammatory changes. No free fluid/air. Stable 1 cm left lobe hepatic cyst. Remaining liver, gallbladder, pancreas, spleen, adrenal glands, kidneys, ureters, bladder, uterus, and aorta are unremarkable for noncontrast exam. Osseous structures intact again with minimal generative changes throughout the spine. Impression: 1. Mild distended gallbladder, abnormal in this postprandial patient. 2. Stable small hepatic cyst. 3. Remaining CT abdomen/pelvis without contrast exam is negative.
[2022-04-05 18:36] VITALS: BP 131/88; PULSE 76; O2SAT 94
[2022-04-05 20:07] LABS: Slide Review 1 YES
== END 2022-04-05 19:11 | disposition home or self-care (01) ==
LOC: ED 15:13
DX: R10.10 Upper abdominal pain, unspecified (principal); R19.7 Diarrhea, unspecified; R11.0 Nausea; R53.83 Other fatigue; Z79.85 Long-term (current) use of injectable non-insulin antidiabetic drugs; Z79.899 Other long term (current) drug therapy; Z28.310 Unvaccinated for COVID-19
CPT/HCPCS: 36000; 36415; 74176; 80053; 81001; 83690; 85025; 96360; 96374; 99284; J2270

== ENCOUNTER 2022-05-02 05:07 | Emergency (ER) | payer OTHER ==
[2022-05-02] MEDS ORDERED: Zofran 4 MG/2 ML VIAL ONE (05:52)
[2022-05-02] MEDS ORDERED: Sodium Chloride 0.9% 1000 ML 1,000 ML ONE (05:52)
[2022-05-02] MEDS: Sodium Chloride 0.9% 1000 ML 1,000 ML IV STA (05:54)
[2022-05-02] MEDS: Zofran 4 MG/2 ML VIAL IV ONE (05:56)
[2022-05-02 06:12] LABS: Absolute Neutrophil Ct (ANC) 4.65 x10^3/uL (1.4-6.9); BASOPHIL % 0.1 % (0.0-0.4); Basophil (Absolute #) 0.01 x10^3/uL (0-0.4); Eosinophil % 3.4 % (0.00-5.0); Eosinophil (Absolute #) 0.26 x10^3/uL (0-0.5); Hematocrit 43.7 % (35-47); Hemoglobin 13.9 g/dL (12.0-16.0); IMMATURE GRAN # 0.02 x10^3u/L (0.00-0.03); IMMATURE GRAN % 0.3 % (0.00-0.4); Lymphocyte (Absolute #) 2.13 x10^3/uL (1.0-4.6); Lymphocytes % 27.9 % (24.0-44.0); Mean Cell Volume 87.8 fL (78-100); Mean Corpuscular Hemoglobin 27.9 pg (26-32); Mean Corpuscular Hgb Concent. 31.8 g/dL (32-36); Mean Platelet Volume 11.2 fL (7.5-11.0); Monocyte (Absolute #) 0.56 x10^3/uL (0.0-1.3); Monocytes % 7.3 % (0.0-12.0); Platelet Count 260 x10^3/uL (150-450); Red Blood Count 4.98 x10^6/uL (4.1-5.4); Red Cell Distribution Width 13.1 % (11.5-14.0); White Blood Count 7.6 x10^3/uL (4.0-10.5)
--- NOTE | 2022-05-02 06:17 | ERPHSYRPT ---
- History of Present Illness Historian: patient Exam Limitations: no limitations Patient Subjective Stated Complaint: pt states she has been having abd pain for past month. today she has been vomiting for last 2 hours. rates pain at 7/10. states she found out yesterday that her gallbladder was bad and has ef of 9% Triage Nursing Assessment: pt alert and oreinted, answers questions approp. pt ambulatory with steady gait noted. respirations nonlabored. skin warm and dry. abd soft, pt reports tenderness to rt abd. bowelsounds present x4 Timing/Duration: today Activities at Onset: none Quality: aching Abdominal Pain Onset Location: RUQ Pain Radiation: no radiation Severity of Pain-Max: moderate Severity of Pain-Current: mild Modifying Factors: Improves With: nothing Associated Symptoms: nausea, vomiting Previous symptoms: same symptoms as today Hx Tetanus, Diphtheria Vaccination/Date Given: No Hx Influenza Vaccination/Date Given: Yes Hx Pneumococcal Vaccination/Date Given: No Immunizations Up to Date: No <ERIN AGUERO - Last Filed: 05/02/22 06:44> <ARNALDO MELO - Last Filed: 05/02/22 08:54> - History of Present Illness Time Seen by Provider: 05/02/22 06:13 Physician History: Patient is a 47-year-old female with a known gallbladder pathology currently working with a surgeon to establish a elective cholecystectomy presents to our ED for evaluation of nausea and vomiting. Patient experiencing some right upper quadrant abdominal pain. Patient states she has been constantly nauseous since 11:00 yesterday morning. Patient unable to tolerate p.o. Patient feels that her right upper quadrant is somewhat more tender than normal. No trauma. No fever. Patient rates her pain 7 out of 10. Patient reports she had a HIDA scan today which revealed a 9% ejection fraction. Symptoms are moderate in intensity. No specific worsening improving factors. Patient voices no other complaints or concerns at this time. Portions of this note were created with voice recognition technology. There may be grammatical, spelling, punctuation or sound alike errors (ERIN AGUERO) Allergies/Adverse Reactions: No Known Drug Allergies Allergy (Verified 05/02/22 05:25) Home Medications: Buspirone HCl 5 mg [Buspar 5 mg] 7.5 mg PO BID 05/01/20 [History] Escitalopram Oxalate [Lexapro 10 MG] 20 mg PO DAILY 05/01/20 [History] Trazodone HCl 50 mg [Desyrel 50 mg] 50 mg PO DAILY PRN PRN 05/01/20 [History] Dicyclomine HCl 20 mg [Bentyl 20 mg] 20 mg PO UD PRN 04/05/22 [History] Liraglutide [Saxenda] 3 mg SQ DAILY 04/05/22 [History] Omeprazole Magnesium [Prilosec Otc] 40 mg PO DAILY 04/05/22 [History] Ondansetron ODT 4 MG [Zofran Odt 4 mg] 4 mg PO Q6HPRN PRN 04/05/22 [History] Travel Risk - International Travel Have you traveled outside of the country in past 3 weeks: No - Coronavirus Screening Are you exhibiting any of the following symptoms?: No Close contact with a COVID-19 positive Pt in past 14-21 Days: No - Vaccine Status Have you recieved a Covid-19 vaccination: No <ERIN AGUERO - Last Filed: 05/02/22 06:44> - Review of Systems Constitutional: No Symptoms, No Fever, No Chills Eyes: No Symptoms Ears, Nose, & Throat: No Symptoms Respiratory: No Symptoms, No Cough, No Dyspnea Cardiac: No Symptoms, No Chest Pain, No Edema, No Syncope Abdominal/Gastrointestinal: No Symptoms, No Abdominal Pain, No Nausea, No Vomiting, No Diarrhea Genitourinary Symptoms: No Symptoms, No Dysuria Musculoskeletal: No Symptoms, No Back Pain, No Neck Pain Skin: No Symptoms, No Rash Neurological: No Symptoms, No Dizziness, No Focal Weakness, No Sensory Changes Psychological: No Symptoms Endocrine: No Symptoms Hematologic/Lymphatic: No Symptoms Immunological/Allergic: No Symptoms All Other Systems: Reviewed and Negative <ERIN AGUERO - Last Filed: 05/02/22 06:44> - Past Medical History Pertinent Past Medical History: Yes Neurological History: No Pertinent History ENT History: No Pertinent History Cardiac History: No Pertinent History Respiratory History: No Pertinent History Endocrine Medical History: No Pertinent History Musculoskeletal History: No Pertinent History GI Medical History: Gallbladder Disease, Irritable Bowel History: No Pertinent History Psycho-Social History: Anxiety, Depression Female Reproductive Disorders: No Pertinent History Other Medical History: gallbladder ef of 9% - Past Surgical History Past Surgical History: Yes Female Surgical History: Section, Tubal Ligation Other Surgical History: uterine ablation 10 yrs ago - Social History Smoking Status: Never smoker Exposure to second hand smoke: No Drug Use: none Patient Lives Alone: No Significant Family History: no pertinent family hx - Female History Hx Last Menstrual Period: post Hx Now: No <ERIN AGUERO Filed: 05/02/22 06:44> - Physical Exam General Appearance: no apparent distress, alert Eye Exam: PERRL/EOMI, eyes nml inspection Ears, Nose, Throat Exam: normal ENT inspection, TMs normal, pharynx normal, moist mucous membranes Neck Exam: normal inspection, non-tender, supple, full range of motion Respiratory Exam: normal breath sounds, lungs clear, airway intact, No respiratory distress Cardiovascular Exam: regular rate/rhythm, normal heart sounds, normal peripheral pulses Gastrointestinal/Abdomen Exam: soft, tenderness (Right upper quadrant tenderness.), other (Right upper quadrant abdominal tenderness), No mass Back Exam: normal inspection, normal range of motion, No CVA tenderness, No vertebral tenderness Extremity Exam: normal inspection, normal range of motion, pelvis stable Neurologic Exam: alert, oriented x 3, cooperative, normal mood/affect, sensation nml, No motor deficits Skin Exam: normal color, warm, dry Lymphatic Exam: No adenopathy SpO2 Interpretation: normal SpO2: 97 O2 Delivery: Room Air <ERIN AGUERO Filed: 05/02/22 06:44> - Nursing Vital Signs Nursing Vital Signs: Initial Vital Signs Temperature 97.4 F 05/02/22 05:14 Pulse Rate 75 05/02/22 05:14 Respiratory Rate 16 05/02/22 05:14 Blood Pressure 164/102 05/02/22 05:14 O2 Sat by Pulse Oximetry 97 05/02/22 05:14 Pain Scale Pain Intensity 0 - Course Nursing assessment & vital signs reviewed: Yes <ERIN AGUERO Filed: 05/02/22 06:44> Ordered Tests: Active Orders 24 hr Category Date Time Status IV Insertion STAT Care 05/02/22 05:47 Active ABDOMEN AND PELVIS W/0 CONTRAS [CT] Stat Exams 05/02/22 05:48 Completed CBC W DIFF Stat Lab 05/02/22 06:05 Completed CMP Stat Lab 05/02/22 06:05 Completed CULTURE,URINE Stat Lab 05/02/22 05:50 Received LIPASE Stat Lab 05/02/22 06:05 Completed TROPONIN Q4H Lab 05/02/22 06:05 Completed TROPONIN Q4H Lab 05/02/22 10:00 Ordered TROPONIN Q4H Lab 05/02/22 14:00 Ordered UA W/RFX UR CULTURE Stat Lab 05/02/22 05:50 Completed Medication Summary Discontinued Medications Generic Name Dose Route Start Last Admin Trade Name Danteq PRN Reason Stop Dose Admin Sodium Chloride 1,000 mls @ 999 mls/hr 05/02/22 05:47 05/02/22 07:25 Sodium Chloride 0.9% 1000 Ml IV 05/02/22 06:47 Infused .Q1H1M STA Infusion Sodium Chloride Confirm 05/02/22 05:52 Sodium Chloride 0.9% 1000 Ml Administered 05/02/22 05:53 Dose 1,000 mls @ ud .ROUTE .STK-MED ONE Morphine Sulfate 4 mg 05/02/22 06:44 05/02/22 06:50 Morphine Sulfate 4 Mg/Ml Injection IV 05/02/22 06:45 4 mg STAT ONE Administration Morphine Sulfate Confirm 05/02/22 06:49 Morphine Sulfate 4 Mg/Ml Injection Administered 05/02/22 06:50 Dose 4 mg .ROUTE .STK-MED ONE Ondansetron HCl 4 mg 05/02/22 05:47 05/02/22 05:56 Ondansetron Hcl 4 Mg/2 Ml Vial IV 05/02/22 05:48 4 mg STAT ONE Administration Ondansetron HCl Confirm 05/02/22 05:52 Ondansetron Hcl 4 Mg/2 Ml Vial Administered 05/02/22 05:53 Dose 4 mg .ROUTE .STK-MED ONE Lab/Rad Data: Laboratory Result Diagrams 05/02/22 06:05 05/02/22 06:05 Laboratory Results 05/02/22 05/02/22 05/02/22 Range/Units 06:05 06:05 06:05 WBC 7.6 (4.0-10.5) x10^3/uL RBC 4.98 (4.1-5.4) x10^6/uL Hgb 13.9 (12.0-16.0) g/dL Hct 43.7 (35-47) % MCV 87.8 (78-100) fL MCH 27.9 (26-32) pg MCHC 31.8 L (32-36) g/dL RDW 13.1 (11.5-14.0) % Plt Count 260 (150-450) x10^3/uL MPV 11.2 H (7.5-11.0) fL Gran % 61.0 (36.0-66.0) % Immature Gran % (Auto) 0.3 (0.00-0.4) % Nucleat RBC Rel Count 0.0 (0.00-0.1) % Eos # (Auto) 0.26 (0-0.5) x10^3/uL Immature Gran # (Auto) 0.02 (0.00-0.03) x10^3u/L Absolute Lymphs (auto) 2.13 (1.0-4.6) x10^3/uL Absolute Monos (auto) 0.56 (0.0-1.3) x10^3/uL Absolute Nucleated RBC 0.00 (0.00-0.01) x10^3u/L Lymphocytes % 27.9 (24.0-44.0) % Monocytes % 7.3 (0.0-12.0) % Eosinophils % 3.4 (0.00-5.0) % Basophils % 0.1 (0.0-0.4) % Absolute Granulocytes 4.65 (1.4-6.9) x10^3/uL Basophils # 0.01 (0-0.4) x10^3/uL Sodium 139 (137-145) mmol/L Potassium 4.1 (3.5-5.1) mmol/L Chloride 104 (98-107) mmol/L Carbon Dioxide 27 (22-30) mmol/L Anion Gap 12.4 (5-15) MEQ/L BUN 11 (7-17) mg/dL Creatinine 0.59 (0.52-1.04) mg/dL Estimated GFR > 60.0 ML/MIN Glucose 96 (74-106) mg/dL Calcium 8.8 (8.4-10.2) mg/dL Total Bilirubin 0.50 (0.2-1.3) mg/dL AST 34 (14-36) U/L ALT 32 (0-35) U/L Alkaline Phosphatase 114 (38-126) U/L Troponin I < 0.012 (0.000-0.034) ng/mL Serum Total Protein 7.5 (6.3-8.2) g/dL Albumin 4.3 (3.5-5.0) g/dL Lipase 50 (23-300) U/L Urine Color (Yellow) Urine Appearance (Clear) Urine pH (4.6-8.0) Ur Specific Lou[place] (1.005-1.030) Urine Protein (Negative) Urine Glucose (UA) (Negative) mg/dL Urine Ketones (Negative) Urine Blood (Negative) Urine Nitrite (Negative) Urine Bilirubin (Negative) Urine Urobilinogen (0.2) mg/dL Ur Leukocyte Esterase (Negative) U Hyaline Cast (Auto) (0-2) /LPF Urine Microscopic RBC (0-5) /HPF Urine Microscopic WBC (0-5) /HPF Ur Epithelial Cells (None Seen) /HPF Urine Bacteria (None Seen) /HPF Urine Culture Reflexed (NO) 05/02/22 Range/Units 05:50 WBC (4.0-10.5) x10^3/uL RBC (4.1-5.4) x10^6/uL Hgb (12.0-16.0) g/dL Hct (35-47) % MCV (78-100) fL MCH (26-32) pg MCHC (32-36) g/dL RDW (11.5-14.0) % Plt Count (150-450) x10^3/uL MPV (7.5-11.0) fL Gran % (36.0-66.0) % Immature Gran % (Auto) (0.00-0.4) % Nucleat RBC Rel Count (0.00-0.1) % Eos # (Auto) (0-0.5) x10^3/uL Immature Gran # (Auto) (0.00-0.03) x10^3u/L Absolute Lymphs (auto) (1.0-4.6) x10^3/uL Absolute Monos (auto) (0.0-1.3) x10^3/uL Absolute Nucleated RBC (0.00-0.01) x10^3u/L Lymphocytes % (24.0-44.0) % Monocytes % (0.0-12.0) % Eosinophils % (0.00-5.0) % Basophils % (0.0-0.4) % Absolute Granulocytes (1.4-6.9) x10^3/uL Basophils # (0-0.4) x10^3/uL Sodium (137-145) mmol/L Potassium (3.5-5.1) mmol/L Chloride (98-107) mmol/L Carbon Dioxide (22-30) mmol/L Anion Gap (5-15) MEQ/L BUN (7-17) mg/dL Creatinine (0.52-1.04) mg/dL Estimated GFR ML/MIN Glucose (74-106) mg/dL Calcium (8.4-10.2) mg/dL Total Bilirubin (0.2-1.3) mg/dL AST (14-36) U/L ALT (0-35) U/L Alkaline Phosphatase (38-126) U/L Troponin I (0.000-0.034) ng/mL Serum Total Protein (6.3-8.2) g/dL Albumin (3.5-5.0) g/dL Lipase (23-300) U/L Urine Color Yellow (Yellow) Urine Appearance Clear (Clear) Urine pH 5.5 (4.6-8.0) Ur Specific [place] 1.015 (1.005-1.030) Urine Protein Negative (Negative) Urine Glucose (UA) Negative (Negative) mg/dL Urine Ketones Negative (Negative) Urine Blood Negative (Negative) Urine Nitrite Negative (Negative) Urine Bilirubin Negative (Negative) Urine Urobilinogen 0.2 (0.2) mg/dL Ur Leukocyte Esterase Moderate A (Negative) U Hyaline Cast (Auto) NONE SEEN (0-2) /LPF Urine Microscopic RBC 0-2 (0-5) /HPF Urine Microscopic WBC 3-5 (0-5) /HPF Ur Epithelial Cells Rare (None Seen) /HPF Urine Bacteria None Seen (None Seen) /HPF Urine Culture Reflexed YES (NO) - Progress Progress: improved Counseled pt/family regarding: lab results, diagnosis, need for follow-up, rad results <ERIN AGUERO - Last Filed: 05/02/22 06:44> <ARNALDO MELO - Last Filed: 05/02/22 08:54> - Progress Progress Note: Patient is a 47-year-old female presents to our ED for evaluation of right upper quadrant pain. Patient is known to have a dysfunctional gallbladder. Patient just had a HIDA scan which showed an EF of 9% per patient. Physical exam reveals right upper quadrant tenderness. Overlying soft tissue intact. Working diagnosis is biliary colic. Complexity of problems addressed is acute complicated with nausea and vomiting. Complexity of data reviewed and analyzed is limited. Labs ordered and reviewed. CT scan ordered results pending. Patient served as independent historian. Risk of complication and or morbidity/mortality of patient management is high. Patient received IV Zofran and morphine for pain control. Disposition pending. CAT scan currently not available. Vital stable. we are at the change of shift. Patient endorsed to Dr. Melo for final disposition. However patient reassessed. Nausea and pain improved. She voices no other complaints or concerns at this time. Portions of this note were created with voice recognition technology. There may be grammatical, spelling, punctuation or sound alike errors 05/02/22 06:45 (ERIN AGUERO) 05/02/22 08:53 I took over care for Dr. Aguero. From history and physical patient appears to have chronic gallbladder issues. Based on my physical exam, pain has completely resolved. Patient does not have an acute gallbladder. She has no rebound, guarding, tenderness. All of liver enzymes are normal. No leukocytosis. Given all of this, I do believe patient is safe for discharge home. She has follow- up with her general surgeon tomorrow. Patient should return here for new or changing symptoms. CT scan obtained. Demonstrates possible chronic cholecystitis without obvious acute or different findings compared to previous scans. Arnaldo Melo MD (ARNALDO MELO) <ERIN AGUERO - Last Filed: 05/02/22 06:44> - Departure Departure Disposition: Home Critical Care Time: No <ARNALDO MELO - Last Filed: 05/02/22 08:54> - Departure Clinical Impression: Recurrent biliary colic Condition: Stable Referrals: CHANDLER LOTT [Primary Care Provider] - Follow up/PCP as directed Instructions: Severe Abdominal Pain, Adult (DC)
[2022-05-02 06:18] LABS: ALBUMIN 4.3 g/dL (3.5-5.0); ALKALINE PHOSPHATASE 114 U/L (38-126); ANION GAP 12.4 MEQ/L (5-15); BLOOD UREA NITROGEN 11 mg/dL (7-17); CHLORIDE 104 mmol/L (98-107); Calcium 8.8 mg/dL (8.4-10.2); Carbon Dioxide 27 mmol/L (22-30); Creatinine 1 0.59 mg/dL (0.52-1.04); EST GLOMERULAR FILTRATION RATE > 60.0 ML/MIN; Glucose 96 mg/dL (74-106); LIPASE 50 U/L (23-300); Potassium 4.1 mmol/L (3.5-5.1); SGOT/AST 34 U/L (14-36); SGPT/ALT 32 U/L (0-35); SODIUM 139 mmol/L (137-145); Total Protein 7.5 g/dL (6.3-8.2)
[2022-05-02 06:25] LABS: ADD URINE CULTURE? YES (NO); Appearance Clear (Clear); Bacteria None Seen /HPF (None Seen); Bilirubin Negative (Negative); Blood Negative (Negative); Epithelial Cells Rare /HPF (None Seen); Glucose, Urine Negative (Negative); Hyaline Casts NONE SEEN /LPF (0-2); Ketones Negative (Negative); Leukocyte Esterase Moderate (Negative); Nitrite Negative (Negative); Ph 5.5 (4.6-8.0); Protein,Urine Dip Negative (Negative); RBC 0-2 /HPF (0-5); Specific Gravity 1.015 (1.005-1.030); Urobilinogen 0.2 mg/dL (0.2)
[2022-05-02] MEDS ORDERED: MORPHINE SULFATE 4 MG INJ ONE (06:49)
[2022-05-02] MEDS: MORPHINE SULFATE 4 MG INJ IV ONE (06:50)
--- NOTE | 2022-05-02 08:47 | XRAY ---
Indication: Right upper quadrant pain, nausea, vomiting, diarrhea. Multiple contiguous axial images obtained through the abdomen and pelvis without contrast. Comparison: April 05, 2022 Lung bases again demonstrates minimal dependent atelectasis. Heart not enlarged. Stomach again distended with food/fluid. Gallbladder remains mildly distended without gallstones or biliary distention. Noncontrasted stomach and bowel loops remain nonobstructed with normal appendix. Stable small left lobe hepatic cyst. No free fluid/air. Remaining liver, gallbladder, pancreas, spleen, adrenal glands, kidneys, ureters, bladder, uterus, and aorta are unremarkable for noncontrast exam. Impression: 1. Again abnormal distended gallbladder in this postprandial patient. Recent HIDA scan demonstrated low ejection fraction 9% concerning for chronic cholecystitis. 2. Stable hepatic cyst. 3. Remaining CT abdomen/pelvis without contrast exam continues to be negative.
[2022-05-02 09:04] VITALS: BP 129/81; PULSE 76; O2SAT 98
[2022-05-02] MEDS ORDERED: Compazine 10 MG/2 ML ONE (09:16)
[2022-05-02] MEDS: Compazine 10 MG/2 ML IV ONE (09:17)
== END 2022-05-02 09:27 | disposition home or self-care (01) ==
LOC: ED 05:07
DX: K80.50 Calculus of bile duct without cholangitis or cholecystitis without obstruction (principal); R11.2 Nausea with vomiting, unspecified; R10.11 Right upper quadrant pain; Z79.85 Long-term (current) use of injectable non-insulin antidiabetic drugs; Z79.899 Other long term (current) drug therapy; Z28.310 Unvaccinated for COVID-19
CPT/HCPCS: 36000; 36415; 74176; 80053; 81001; 83690; 84484; 85025; 87086; 96360; 96374; 96375; 99284; J2270; J2405

== ENCOUNTER 2023-01-27 11:19 | Emergency (ER) | payer OTHER ==
[2023-01-27 11:44] VITALS: TEMP 97.8
--- NOTE | 2023-01-27 11:48 | ERPHSYRPT ---
- History of Present Illness Time Seen by Provider: 01/27/23 11:22 Historian: patient, EMS Exam Limitations: no limitations Patient Subjective Stated Complaint: C/O intermittent right lower abdominal pain. Patient states she was standing in [employer] when she got a sudden sharp pain in her right lower stomach causing her to sit down. States she then became diaphoretic and dizzy. Pain subsided by the time patient arrived to ER. Triage Nursing Assessment: Patient arrived by ambulance. She is alert and oriented. No SOB. No cough. Right lower abdomen is tender to palpation. Bowel sounds present. Lungs clear. BROWNE WNL. Peripheral IV to left AC present. 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 Patient reports having 4/10 intensity right-sided abdominal pain on presentation in the ER with no chest pain palpitations or shortness of breath currently. Does report feeling dizzy and lightheaded earlier when she had a pain but no such symptoms at present. Denies any associated nausea or vomiting. Does have history of irritable bowel syndrome with off-and-on diarrhea. Allergies/Adverse Reactions: No Known Drug Allergies Allergy (Verified 01/27/23 11:20) Home Medications: Buspirone HCl 1 tab PO BID 01/27/23 [History] Dicyclomine HCl 1 tab PO AC 01/27/23 [History] Empagliflozin [Jardiance] 25 mg PO DAILY 01/27/23 [History] Escitalopram Oxalate [Lexapro] 1 tab PO DAILY 01/27/23 [History] Semaglutide [Ozempic] 1 mg SQ WEEKLY 01/27/23 [History] Semaglutide [Rybelsus] 1 tab PO DAILY 01/27/23 [History] Hx Tetanus, Diphtheria Vaccination/Date Given: Yes Hx Influenza Vaccination/Date Given: Yes Hx Pneumococcal Vaccination/Date Given: No Immunizations Up to Date: Yes Travel Risk - International Travel Have you traveled outside of the country in past 3 weeks: No - Coronavirus Screening Are you exhibiting any of the following symptoms?: No Close contact with a COVID-19 positive Pt in past 14-21 Days: No - Vaccine Status Have you recieved a Covid-19 vaccination: No - Review of Systems Constitutional: No Symptoms Ears, Nose, & Throat: No Symptoms Respiratory: No Symptoms Cardiac: No Symptoms Abdominal/Gastrointestinal: Abdominal Pain Genitourinary Symptoms: No Symptoms Musculoskeletal: No Symptoms Skin: No Symptoms Neurological: No Symptoms Psychological: No Symptoms Hematologic/Lymphatic: No Symptoms Immunological/Allergic: No Symptoms - Past Medical History Pertinent Past Medical History: Yes Neurological History: No Pertinent History ENT History: No Pertinent History Cardiac History: No Pertinent History Respiratory History: No Pertinent History Endocrine Medical History: Diabetes Type II Musculoskeletal History: No Pertinent History GI Medical History: Gallbladder Disease, Irritable Bowel, Other History: No Pertinent History Psycho-Social History: Anxiety, Depression Female Reproductive Disorders: No Pertinent History Other Medical History: gallbladder ef of 9%, H Pylori - Past Surgical History Past Surgical History: Yes Gastrointestinal: Cholecystectomy Female Surgical History: Section, Tubal Ligation Other Surgical History: uterine ablation 10 yrs ago - Social History Smoking Status: Never smoker Exposure to second hand smoke: No Drug Use: none Patient Lives Alone: No Significant Family History: no pertinent family hx - Female History Hx Last Menstrual Period: No longer has them Hx Now: (unkn) - Nursing Vital Signs Nursing Vital Signs: Initial Vital Signs Temperature 97.8 F 01/27/23 11:19 Pulse Rate 76 01/27/23 11:19 Respiratory Rate 20 01/27/23 11:19 Blood Pressure 190/106 01/27/23 11:19 O2 Sat by Pulse Oximetry 96 01/27/23 11:19 Pain Scale Pain Intensity 0 - Physical Exam General Appearance: no apparent distress, alert Eye Exam: PERRL/EOMI Ears, Nose, Throat Exam: normal ENT inspection Neck Exam: normal inspection, supple, full range of motion Respiratory Exam: normal breath sounds, lungs clear Cardiovascular Exam: regular rate/rhythm, normal heart sounds Gastrointestinal/Abdomen Exam: soft, normal bowel sounds, tenderness (Right flank/right lower quadrant mild tenderness.) Extremity Exam: normal inspection, normal range of motion Neurologic Exam: alert, oriented x 3, cooperative, operational trainer II-XII nml as tested, normal mood/affect, nml cerebellar function, sensation nml, No motor deficits Skin Exam: normal color SpO2 Interpretation: normal SpO2: 96 O2 Delivery: Room Air - Course EKG Interpreted by Me: RATE ([id number]), Sinus Rhythm, NORMAL AXIS, NORMAL INTERVALS, Non-specific ST Changes Ordered Tests: Active Orders 24 hr Category Date Time Status EKG-ER Only STAT Care 01/27/23 11:37 Completed IV Insertion STAT Care 01/27/23 11:37 Completed NPO (ED) STAT Care 01/27/23 11:37 Completed ABDOMEN AND PELVIS W CONTRAST [CT] Stat Exams 01/27/23 11:38 Completed CHEST 1 VIEW (PORTABLE) Stat Exams 01/27/23 11:37 Completed CBC W DIFF Stat Lab 01/27/23 11:30 Completed CMP Stat Lab 01/27/23 11:30 Completed HCG QUALITATIVE, URINE Stat Lab 01/27/23 13:04 Completed LIPASE Stat Lab 01/27/23 11:30 Completed Lactic Acid Stat Lab 01/27/23 11:37 Completed TROPONIN Q4H Lab 01/27/23 11:30 Completed TROPONIN Q4H Lab 01/27/23 14:03 Completed UA W/RFX UR CULTURE Stat Lab 01/27/23 13:04 Completed Medication Summary Discontinued Medications Generic Name Dose Route Start Last Admin Trade Name Lawanda PRN Reason Stop Dose Admin Acetaminophen 1,000 mg 01/27/23 12:53 01/27/23 12:57 Acetaminophen 500 Mg Tablet PO 01/27/23 12:54 1,000 mg STAT STA Administration Acetaminophen Confirm 01/27/23 12:57 Acetaminophen 500 Mg Tablet Administered 01/27/23 12:58 Dose 1,000 mg .ROUTE .STK-MED ONE Ondansetron HCl 4 mg 01/27/23 15:30 01/27/23 15:52 Ondansetron Hcl 4 Mg/2 Ml Vial IV 01/27/23 15:31 4 mg STAT ONE Administration Ondansetron HCl Confirm 01/27/23 15:52 Ondansetron Hcl 4 Mg/2 Ml Vial Administered 01/27/23 15:53 Dose 4 mg .ROUTE .STK-MED ONE Lab/Rad Data: Laboratory Result Diagrams 01/27/23 11:30 01/27/23 11:30 Laboratory Results 01/27/23 01/27/23 01/27/23 Range/Units 14:03 13:04 13:04 WBC (4.0-10.5) x10^3/uL RBC (4.1-5.4) x10^6/uL Hgb (12.0-16.0) g/dL Hct (35-47) % MCV (78-100) fL MCH (26-32) pg MCHC (32-36) g/dL RDW (11.5-14.0) % Plt Count (150-450) x10^3/uL MPV (7.5-11.0) fL Gran % (36.0-66.0) % Immature Gran % (Auto) (0.00-0.4) % Nucleat RBC Rel Count (0.00-0.1) % Eos # (Auto) (0-0.5) x10^3/uL Immature Gran # (Auto) (0.00-0.03) x10^3u/L Absolute Lymphs (auto) (1.0-4.6) x10^3/uL Absolute Monos (auto) (0.0-1.3) x10^3/uL Absolute Nucleated RBC (0.00-0.01) x10^3u/L Lymphocytes % (24.0-44.0) % Monocytes % (0.0-12.0) % Eosinophils % (0.00-5.0) % Basophils % (0.0-0.4) % Absolute Granulocytes (1.4-6.9) x10^3/uL Basophils # (0-0.4) x10^3/uL Sodium (137-145) mmol/L Potassium (3.5-5.1) mmol/L Chloride (98-107) mmol/L Carbon Dioxide (22-30) mmol/L Anion Gap (5-15) MEQ/L BUN (7-17) mg/dL Creatinine (0.52-1.04) mg/dL Estimated GFR ML/MIN Glucose (74-106) mg/dL Lactic Acid (0.4-2.0) Calcium (8.4-10.2) mg/dL Total Bilirubin (0.2-1.3) mg/dL AST (14-36) U/L ALT (0-35) U/L Alkaline Phosphatase (38-126) U/L Troponin I < 0.012 (0.000-0.034) ng/mL Serum Total Protein (6.3-8.2) g/dL Albumin (3.5-5.0) g/dL Lipase (23-300) U/L Urine Color Yellow (Yellow) Urine Appearance Clear (Clear) Urine pH 5.5 (4.6-8.0) Ur Specific [place] >=1.030 A (1.005-1.030) Urine Protein Negative (Negative) Urine Glucose (UA) >=1000 A (Negative) mg/dL Urine Ketones Negative (Negative) Urine Blood Negative (Negative) Urine Nitrite Negative (Negative) Urine Bilirubin Negative (Negative) Urine Urobilinogen 0.2 (0.2) mg/dL Ur Leukocyte Esterase Negative (Negative) U Hyaline Cast (Auto) NONE SEEN (0-2) /LPF Urine Microscopic RBC 0-2 (0-5) /HPF Urine Microscopic WBC 0-2 (0-5) /HPF Ur Epithelial Cells None Seen (None Seen) /HPF Urine Bacteria None Seen (None Seen) /HPF Urine Culture Reflexed NO (NO) Urine HCG, Qual NEGATIVE (NEGATIVE) 01/27/23 01/27/23 01/27/23 Range/Units 11:37 11:30 11:30 WBC (4.0-10.5) x10^3/uL RBC (4.1-5.4) x10^6/uL Hgb (12.0-16.0) g/dL Hct (35-47) % MCV (78-100) fL MCH (26-32) pg MCHC (32-36) g/dL RDW (11.5-14.0) % Plt Count (150-450) x10^3/uL MPV (7.5-11.0) fL Gran % (36.0-66.0) % Immature Gran % (Auto) (0.00-0.4) % Nucleat RBC Rel Count (0.00-0.1) % Eos # (Auto) (0-0.5) x10^3/uL Immature Gran # (Auto) (0.00-0.03) x10^3u/L Absolute Lymphs (auto) (1.0-4.6) x10^3/uL Absolute Monos (auto) (0.0-1.3) x10^3/uL Absolute Nucleated RBC (0.00-0.01) x10^3u/L Lymphocytes % (24.0-44.0) % Monocytes % (0.0-12.0) % Eosinophils % (0.00-5.0) % Basophils % (0.0-0.4) % Absolute Granulocytes (1.4-6.9) x10^3/uL Basophils # (0-0.4) x10^3/uL Sodium 137 (137-145) mmol/L Potassium 3.6 (3.5-5.1) mmol/L Chloride 103 (98-107) mmol/L Carbon Dioxide 23 (22-30) mmol/L Anion Gap 14.5 (5-15) MEQ/L BUN 12 (7-17) mg/dL Creatinine 0.66 (0.52-1.04) mg/dL Estimated GFR 108.1 ML/MIN Glucose 102 (74-106) mg/dL Lactic Acid 1.1 (0.4-2.0) Calcium 9.4 (8.4-10.2) mg/dL Total Bilirubin 0.60 (0.2-1.3) mg/dL AST 38 H (14-36) U/L ALT 28 (0-35) U/L Alkaline Phosphatase 110 (38-126) U/L Troponin I < 0.012 (0.000-0.034) ng/mL Serum Total Protein 7.9 (6.3-8.2) g/dL Albumin 4.5 (3.5-5.0) g/dL Lipase 52 (23-300) U/L Urine Color (Yellow) Urine Appearance (Clear) Urine pH (4.6-8.0) Ur Specific [place] (1.005-1.030) Urine Protein (Negative) Urine Glucose (UA) (Negative) mg/dL Urine Ketones (Negative) Urine Blood (Negative) Urine Nitrite (Negative) Urine Bilirubin (Negative) Urine Urobilinogen (0.2) mg/dL Ur Leukocyte Esterase (Negative) U Hyaline Cast (Auto) (0-2) /LPF Urine Microscopic RBC (0-5) /HPF Urine Microscopic WBC (0-5) /HPF Ur Epithelial Cells (None Seen) /HPF Urine Bacteria (None Seen) /HPF Urine Culture Reflexed (NO) Urine HCG, Qual (NEGATIVE) 01/27/23 Range/Units 11:30 WBC 6.5 (4.0-10.5) x10^3/uL RBC 5.51 H (4.1-5.4) x10^6/uL Hgb 15.4 (12.0-16.0) g/dL Hct 47.5 H (35-47) % MCV 86.2 (78-100) fL MCH 27.9 (26-32) pg MCHC 32.4 (32-36) g/dL RDW 12.5 (11.5-14.0) % Plt Count 243 (150-450) x10^3/uL MPV 11.2 H (7.5-11.0) fL Gran % 55.3 (36.0-66.0) % Immature Gran % (Auto) 0.2 (0.00-0.4) % Nucleat RBC Rel Count 0.0 (0.00-0.1) % Eos # (Auto) 0.12 (0-0.5) x10^3/uL Immature Gran # (Auto) 0.01 (0.00-0.03) x10^3u/L Absolute Lymphs (auto) 2.29 (1.0-4.6) x10^3/uL Absolute Monos (auto) 0.47 (0.0-1.3) x10^3/uL Absolute Nucleated RBC 0.00 (0.00-0.01) x10^3u/L Lymphocytes % 35.0 (24.0-44.0) % Monocytes % 7.2 (0.0-12.0) % Eosinophils % 1.8 (0.00-5.0) % Basophils % 0.5 (0.0-0.4) % Absolute Granulocytes 3.62 (1.4-6.9) x10^3/uL Basophils # 0.03 (0-0.4) x10^3/uL Sodium (137-145) mmol/L Potassium (3.5-5.1) mmol/L Chloride (98-107) mmol/L Carbon Dioxide (22-30) mmol/L Anion Gap (5-15) MEQ/L BUN (7-17) mg/dL Creatinine (0.52-1.04) mg/dL Estimated GFR ML/MIN Glucose (74-106) mg/dL Lactic Acid (0.4-2.0) Calcium (8.4-10.2) mg/dL Total Bilirubin (0.2-1.3) mg/dL AST (14-36) U/L ALT (0-35) U/L Alkaline Phosphatase (38-126) U/L Troponin I (0.000-0.034) ng/mL Serum Total Protein (6.3-8.2) g/dL Albumin (3.5-5.0) g/dL Lipase (23-300) U/L Urine Color (Yellow) Urine Appearance (Clear) Urine pH (4.6-8.0) Ur Specific [place] (1.005-1.030) Urine Protein (Negative) Urine Glucose (UA) (Negative) mg/dL Urine Ketones (Negative) Urine Blood (Negative) Urine Nitrite (Negative) Urine Bilirubin (Negative) Urine Urobilinogen (0.2) mg/dL Ur Leukocyte Esterase (Negative) U Hyaline Cast (Auto) (0-2) /LPF Urine Microscopic RBC (0-5) /HPF Urine Microscopic WBC (0-5) /HPF Ur Epithelial Cells (None Seen) /HPF Urine Bacteria (None Seen) /HPF Urine Culture Reflexed (NO) Urine HCG, Qual (NEGATIVE) - Progress Progress: improved, re-examined Progress Note: 01/27/23 15:34 47 years old is evaluated in the ER with sudden onset right-sided abdominal pain while she was at the [employer]dhist followed by some pressure in the chest with feeling of dizzy and lightheadedness. Her chest pressure was improved prior to EMS arrival and her abdominal pain is improved remarkably prior to arrival in the ER. She has minimal right-sided abdominal tenderness on initial exam which is improved later on without any medications. Work-up showed normal white count, fairly unremarkable chemistries. EKG negative for any acute ischemic changes and negative troponins x2. Chest x-ray negative for any acute cardiopulmonary findings reviewed by me, official report is pending. I have obtained CT abdomen pelvis with contrast which is negative for any acute abdominal pelvic findings but did show small cyst on the liver, leiomyoma and a small nodule in the lung which I have shared with patient and recommended outpatient primary care follow- up for further evaluation. I do not think this is the reason for her symptoms. Does have history of IBS could have cramping from that but no acute findings. I do not know exactly what was the reason for her symptoms. But I have ruled o ut all the major emergencies. Patient is symptom-free, vitally stable. Do not think she needs any other work-up and is stable for discharge with outpatient follow-up. Discussed signs symptoms of worsening needing return to ER which she seems understanding. Stable for discharge. Counseled pt/family regarding: lab results, diagnosis, need for follow-up, rad results - Departure Departure Disposition: Home Clinical Impression: Abdominal pain, Sensation of chest pressure Condition: Stable Critical Care Time: No Referrals: CHANDLER LOTT [Primary Care Provider] - Follow up/PCP as directed Instructions: Abdominal pain, Chest Pain (DC) Additional Instructions: Take Tylenol as needed for symptomatic relief. Follow-up with primary care for reevaluation and if again having chest pain needs follow-up with cardiology. Continue with your current medication and return to ER for intractable abdominal pain or if having chest pain palpitations or shortness of breath.
[2023-01-27 11:52] LABS: Absolute Neutrophil Ct (ANC) 3.62 x10^3/uL (1.4-6.9); BASOPHIL % 0.5 % (0.0-0.4); Basophil (Absolute #) 0.03 x10^3/uL (0-0.4); Eosinophil % 1.8 % (0.00-5.0); Eosinophil (Absolute #) 0.12 x10^3/uL (0-0.5); Hematocrit 47.5 % (35-47); Hemoglobin 15.4 g/dL (12.0-16.0); IMMATURE GRAN # 0.01 x10^3u/L (0.00-0.03); IMMATURE GRAN % 0.2 % (0.00-0.4); Lymphocyte (Absolute #) 2.29 x10^3/uL (1.0-4.6); Mean Cell Volume 86.2 fL (78-100); Mean Corpuscular Hemoglobin 27.9 pg (26-32); Mean Corpuscular Hgb Concent. 32.4 g/dL (32-36); Mean Platelet Volume 11.2 fL (7.5-11.0); Monocyte (Absolute #) 0.47 x10^3/uL (0.0-1.3); Monocytes % 7.2 % (0.0-12.0); Neutrophil % 55.3 % (36.0-66.0); Platelet Count 243 x10^3/uL (150-450); Red Blood Count 5.51 x10^6/uL (4.1-5.4); Red Cell Distribution Width 12.5 % (11.5-14.0); White Blood Count 6.5 x10^3/uL (4.0-10.5)
[2023-01-27 12:06] LABS: ALBUMIN 4.5 g/dL (3.5-5.0); ANION GAP 14.5 MEQ/L (5-15); BILIRUBIN,TOTAL 0.6 mg/dL (0.2-1.3); Calcium 9.4 mg/dL (8.4-10.2); Creatinine 1 0.66 mg/dL (0.52-1.04); EST GLOMERULAR FILTRATION RATE 108.1 ML/MIN; Potassium 3.6 mmol/L (3.5-5.1); Total Protein 7.9 g/dL (6.3-8.2)
[2023-01-27] MEDS ORDERED: TYLENOL EXTRA STRENGTH 500 MG PO STA (12:53)
[2023-01-27] MEDS ORDERED: TYLENOL EXTRA STRENGTH 500 MG ONE (12:57)
--- NOTE | 2023-01-27 13:04 | XRAY ---
CLINICAL HISTORY:right side pain COMPARISON:None TECHNIQUE:CT scan of the abdomen and pelvis with the administration of intravenous injection of 80 mL of Isovue 370 contrast. FINDINGS: The liver is of average size, displaying regular contour and homogeneous texture. Enlarged left hepatic lobe extending to the left hypochondria region (variant). Small left and right hepatic lobe hypodense focal lesions measuring about 9 x 8 mm and 5 x 4 mm respectively. Postcholecystectomy with no biliary dilatation. Normal hepatic vascular pattern is noted with no evidence of vascular distortion, thrombotic venous occlusion, or compromise of the hepatic biliary drainage. The spleen is of average size with no abnormal focal parenchymal attenuation or makenna splenic collection. Both kidneys are of average size, shape, and parenchymal thickness with no evidence of stones, back pressure changes, or space-occupying lesions. The pancreas, adrenal glands, and great vessels are grossly within normal limits. No significant lymph adrián enlargement or ascetic fluid collection. The visualized bowel loops showed no significant abnormalities. The uterus shows a hypodense focal lesion measuring about 27 x 24 mm, both adnexa and ischiorectal fossae show normal CT appearance. Normal filling of the urinary bladder with no stones, masses, or diverticula. Bone window settings showed mild spondylotic changes with multilevel facet arthropathy. Lung window settings showed a tiny right lung base subpleural nodule. IMPRESSION: 1. No acute abdominal or bowel abnormalities. 2. Postcholecystectomy with no biliary dilatation. 3. Two small hepatic hypodense focal lesions, likely small cysts. 4. 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 5. Tiny right lung base subpleural nodule (too small to characterize). Advise CT chest follow-up if clinically warranted. 6. Mild spondylotic changes with multilevel facet arthropathy. Electronically Signed by: Angela Viera MD. (01/27/2023 12:02:01 LITIGATION LEGAL ASSISTANT)
[2023-01-27 13:12] LABS: HCG URINE TEST NEGATIVE (NEGATIVE)
[2023-01-27 13:17] LABS: Appearance Clear (Clear); Bacteria None Seen /HPF (None Seen); Bilirubin Negative (Negative); Blood Negative (Negative); Epithelial Cells None Seen /HPF (None Seen); Glucose, Urine >=1000 mg/dL (Negative); Hyaline Casts NONE SEEN /LPF (0-2); Ketones Negative (Negative); Leukocyte Esterase Negative (Negative); Nitrite Negative (Negative); Ph 5.5 (4.6-8.0); Protein,Urine Dip Negative (Negative); RBC 0-2 /HPF (0-5); Specific Gravity >=1.030 (1.005-1.030); Urobilinogen 0.2 mg/dL (0.2); WBC 0-2 /HPF (0-5)
[2023-01-27 13:21] LABS: ADD URINE CULTURE? NO (NO)
[2023-01-27] MEDS ORDERED: Zofran 4 MG/2 ML VIAL IV ONE (15:30)
[2023-01-27 15:38] VITALS: O2SAT 96
[2023-01-27] MEDS ORDERED: Zofran 4 MG/2 ML VIAL ONE (15:52)
[2023-01-27 16:02] VITALS: BP 145/89; PULSE 70; RESP 13
--- NOTE | 2023-01-27 18:02 | XRAY ---
Indication: Short of breath. Comparison: None Portable apical lordotic chest demonstrates normal heart and lungs. Bony thorax intact.
== END 2023-01-27 16:04 | disposition home or self-care (01) ==
LOC: ED 11:19
DX: R10.31 Right lower quadrant pain (principal); R07.9 Chest pain, unspecified; E11.9 Type 2 diabetes mellitus without complications; Z79.84 Long term (current) use of oral hypoglycemic drugs; Z79.85 Long-term (current) use of injectable non-insulin antidiabetic drugs; Z79.899 Other long term (current) drug therapy; Z28.310 Unvaccinated for COVID-19
CPT/HCPCS: 36415; 71045; 74177; 80053; 81001; 81025; 83605; 83690; 84484; 85025; 93005; 96374; 99284; J2405; A9270-GY